=== PATIENT | female | born 1955 | race Asian ===

== ENCOUNTER 2020-05-05 11:17 | Outpatient (REF) | payer MEDICARE, SELFPAY ==
--- NOTE | 2020-05-05 11:23 | MM_ITS ---
EXAMINATION: MM SCREENING DIGITAL BREAST TOMOSYNTHESIS, BILATERAL CLINICAL INFORMATION: Screening. Asymptomatic. The lifetime risk of breast cancer based on the Tyrer-Cuzick Model is 6%. COMPARISON: Mammography: 09/16/2017, 08/03/2016 TECHNIQUE: Digital breast tomosynthesis is performed in both the craniocaudal and mediolateral oblique views along with computer-aided detection (CAD). Synthesized 2D images are generated from the tomosynthesis. FINDINGS: The breasts are heterogeneously dense, which may obscure small masses (ACR BI-RADS breast composition Category c). There are no significant masses, abnormal calcifications, or other abnormalities. Parenchymal pattern is similar to prior studies. Again, there are scattered coarse and punctate calcifications. No significant changes. MM/MM tomosynthesis screening BI IMPRESSION: No mammographic evidence of malignancy. ASSESSMENT: BI-RADS 2: Benign RECOMMENDATION: Routine annual mammography screening. This patient's information was entered into a reminder system with a target due date for their next mammogram.
== END 2020-05-05 11:18 | disposition home or self-care (01) ==
LOC: HO.MAMMO 11:17
PROVIDERS: PCP Internal Medicine; Visit Provider Internal Medicine
DX: Z12.31 Encounter for screening mammogram for malignant neoplasm of breast (principal)
CPT/HCPCS: 77063; 77067

== ENCOUNTER 2021-02-12 10:26 | Outpatient (REF) | payer MEDICARE, SELFPAY ==
[2021-02-12 10:28] LABS: MANUAL DIFF FLAG NO
[2021-02-12 10:38] LABS: Basophils Absolute Auto 0.1 X10*3/uL (0.0-0.2); Basophils Percent Auto 1.5 % (0-2); Eosinophils Absolute Auto 0.6 X10*3/uL (0.0-0.4); Eosinophils Percent Auto 10.3 % (0-4); Hematocrit 39.4 % (37-47); Hemoglobin 13.1 g/dl (12.0-16.0); Imm Gran Abs Auto 0.01 X10*3/uL (0.00-0.03); Imm Gran Pct Auto 0.2 % (0.0-0.4); Lymphocytes Absolute Auto 2.3 X10*3/uL (1.2-4.9); Lymphocytes Percent Auto 42.7 % (20-40); Mean Corpuscular HGB Conc 33.2 g/dl (31.0-35.0); Mean Corpuscular Volume 90.4 fL (80-98); Mean Platelet Volume 9.8 fL (9.4-12.3); Monocytes Absolute Auto 0.4 X10*3/uL (0.1-1.2); Monocytes Percent Auto 6.8 % (2-11); Neutrophils Absolute Auto 2.1 X10*3/uL (2.0-8.3); Neutrophils Percent Auto 38.5 % (45-73); Platelet Count 256 X10*3/uL (160-400); Red Blood Count 4.36 X10*6/uL (4.20-5.50); Red Cell Distribution Width 12.8 % (11.0-16.0); White Blood Count 5.4 X10*3/uL (4.8-10.8)
[2021-02-12 10:57] LABS: Alanine Aminotransferase 26 U/L (0-31); Alkaline Phosphatase 79 U/L (39-117); Anion Gap 11 (12-20); Aspartate Amino Transferase 21 U/L (5-31); Bilirubin Total 0.8 mg/dL (0.0-1.0); Blood Urea Nitrogen 10 mg/dL (9-16); Calcium 9.2 mg/dL (8.4-10.2); Carbon Dioxide 26 mmol/L (22-29); Chloride 106 mmol/L (96-108); Cholesterol 189 mg/dL; Estimated Glomerular Filt Rate > 60; Glucose Fasting 131 mg/dL (60-99); HDL Cholesterol 45 mg/dL; LDL Cholesterol Calculated 115 mg/dl; Potassium 3.4 mmol/L (3.3-5.1); Sodium 140 mmol/L (135-145); Total Protein 6.9 g/dL (6.5-8.0); Triglycerides 148 mg/dL
[2021-02-12 11:01] LABS: Estimated Average Glucose 131 mg/dL; Hemoglobin A1c % 6.2 %
[2021-02-12 11:08] LABS: Appearance Urine HAZY; Color Urine YELLOW; Glucose Urine UA NEG (NEG); Leukocyte Esterase Urine 2+ (NEG); Nitrite Urine NEG (NEG); PH 7.5 (5.0-8.0); Specific Gravity - Urine 1.015 (1.005-1.025); Urine Blood NEG (NEG); Urine Ketones NEG (NEG); Urine Protein NEG (NEG-TRACE)
[2021-02-12 11:32] LABS: Creatinine Urine 123.76 mg/dL; Microalbum/Creatinine Ratio Ur 12.1 ug/mg cr
[2021-02-12 11:35] LABS: Bacteria Urine 3+ /LPF; RBC Urine 0 /HPF (0); Squamous Epithelial Cell Urine 1+ /LPF
== END 2021-02-12 10:27 | disposition home or self-care (01) ==
LOC: HO.LNP 10:26
PROVIDERS: Visit Provider Internal Medicine
DX: E11.9 Type 2 diabetes mellitus without complications (principal); M81.0 Age-related osteoporosis without current pathological fracture; E55.9 Vitamin D deficiency, unspecified
CPT/HCPCS: 80053; 80061; 81001; 81003; 82043; 82306; 83036; 85025

== ENCOUNTER 2021-04-20 10:22 | Outpatient (REF) | payer MEDICARE, SELFPAY ==
[2021-04-20 10:25] LABS: MANUAL DIFF FLAG NO
[2021-04-20 11:15] LABS: Basophils Absolute Auto 0.1 X10*3/uL (0.0-0.2); Basophils Percent Auto 1.2 % (0-2); Eosinophils Absolute Auto 0.6 X10*3/uL (0.0-0.4); Eosinophils Percent Auto 10.5 % (0-4); Hematocrit 41.4 % (37.0-47.0); Hemoglobin 13.6 g/dl (12.0-16.0); Imm Gran Abs Auto 0.01 X10*3/uL (0.00-0.03); Imm Gran Pct Auto 0.2 % (0.0-0.4); Lymphocytes Percent Auto 34.1 % (20-40); Mean Corpuscular HGB Conc 32.9 g/dl (31.0-35.0); Mean Corpuscular Hemoglobin 30.2 pg (27.0-33.0); Mean Platelet Volume 10.3 fL (9.4-12.3); Monocytes Absolute Auto 0.5 X10*3/uL (0.1-1.2); Neutrophils Absolute Auto 2.8 x10*3/uL (2.0-8.3); Platelet Count 259 X10*3/uL (160-400); Red Cell Distribution Width 12.6 % (11.0-16.0)
== END 2021-04-20 10:23 | disposition home or self-care (01) ==
LOC: HO.LNP 10:22
PROVIDERS: Visit Provider Internal Medicine
DX: D72.820 Lymphocytosis (symptomatic) (principal)
CPT/HCPCS: 85025

== ENCOUNTER 2021-05-12 09:48 | Outpatient (REF) | payer MEDICARE, SELFPAY ==
--- NOTE | ~2021-05-12 | MM_ITS ---
EXAMINATION: MM SCREENING DIGITAL BREAST TOMOSYNTHESIS, BILATERAL CLINICAL INFORMATION: Screening. Asymptomatic. The lifetime risk of breast cancer based on the Tyrer-Cuzick Model is 5%. COMPARISON: Mammography: 05/05/2020, 09/16/2017, 08/03/2016 TECHNIQUE: Digital breast tomosynthesis is performed in both the craniocaudal and mediolateral oblique views along with computer-aided detection (CAD). Synthesized 2D images are generated from the tomosynthesis. Additional exaggerated right CC view is provided. FINDINGS: The breasts are heterogeneously dense, which may obscure small masses (ACR BI-RADS breast composition Category c). There are no significant masses, abnormal calcifications, or other abnormalities. No developing density or architectural abnormality. The axilla are unremarkable. No significant changes. MM/MM tomosynthesis screening BI IMPRESSION: No mammographic evidence of malignancy. ASSESSMENT: BI-RADS 1: Negative RECOMMENDATION: Routine annual mammography screening. This patient's information was entered into a reminder system with a target due date for their next mammogram.
== END 2021-05-12 09:49 | disposition home or self-care (01) ==
LOC: HO.MAMMO 09:48
PROVIDERS: Visit Provider Internal Medicine
DX: Z12.31 Encounter for screening mammogram for malignant neoplasm of breast (principal)
CPT/HCPCS: 77063; 77067

== ENCOUNTER 2021-08-18 15:36 | Outpatient (REF) | payer MEDICARE, SELFPAY ==
[2021-08-18 15:40] LABS: MANUAL DIFF FLAG NO
[2021-08-18 15:48] LABS: Basophils Absolute Auto 0.1 X10*3/uL (0.0-0.2); Basophils Percent Auto 1.4 % (0-2); Eosinophils Absolute Auto 0.1 X10*3/uL (0.0-0.4); Eosinophils Percent Auto 1.6 % (0-4); Hematocrit 41.4 % (37.0-47.0); Hemoglobin 13.4 g/dl (12.0-16.0); Imm Gran Abs Auto 0.01 X10*3/uL (0.00-0.03); Imm Gran Pct Auto 0.2 % (0.0-0.4); Lymphocytes Absolute Auto 1.7 X10*3/uL (1.2-4.9); Lymphocytes Percent Auto 35.3 % (20-40); Mean Corpuscular HGB Conc 32.4 g/dl (31.0-35.0); Mean Corpuscular Hemoglobin 29.6 pg (27.0-33.0); Mean Corpuscular Volume 91.6 fL (80.0-98.0); Mean Platelet Volume 10.2 fL (9.4-12.3); Monocytes Absolute Auto 0.4 X10*3/uL (0.1-1.2); Monocytes Percent Auto 7.2 % (2-11); Neutrophils Absolute Auto 2.6 x10*3/uL (2.0-8.3); Neutrophils Percent Auto 54.3 % (45-73); Platelet Count 253 X10*3/uL (160-400); Red Blood Count 4.52 X10*6/uL (4.20-5.50); Red Cell Distribution Width 12.6 % (11.0-16.0); White Blood Count 4.9 X10*3/uL (4.8-10.8)
== END 2021-08-18 15:37 | disposition home or self-care (01) ==
LOC: HO.LNP 15:36
PROVIDERS: Visit Provider Internal Medicine
DX: D72.820 Lymphocytosis (symptomatic) (principal)
CPT/HCPCS: 85025

== ENCOUNTER 2022-01-08 10:14 | Outpatient (REF) | payer MEDICARE, SELFPAY ==
--- NOTE | ~2022-01-08 | MM_ITS ---
EXAMINATION: BONE DENSITOMETRY CLINICAL INDICATION: Osteoporosis. COMPARISON: Previous BD dated 01/03/2020 and baseline BD dated 09/03/2015. TECHNIQUE: Using a [employer] DXA System (software version: 13.1) manufactured by [employer], dual-energy x-ray absorptiometry was performed of the lumbar spine and left hip. The images are of good technical quality. Summary results are attached. FINDINGS: AP SPINE L1-L4: Current: BMD 0.956 g/cm2, Z-score -0.2, T-score -1.9, osteopenia, 6.2% decrease from previous, 1.1% decrease from baseline (<5% change is not significant). Prior: BMD 1.019 g/cm2. Baseline: BMD 0.967 g/cm2. LEFT FEMUR, NECK: Current: BMD 0.697 g/cm2, Z-score -0.9, T-score -2.5, osteoporosis. Prior: BMD 0.698 g/cm2. Baseline: BMD 0.734 g/cm2. LEFT FEMUR, TOTAL: Current: BMD 0.770 g/cm2, Z-score -0.5, T-score -1.9, osteopenia, 0.6% decrease from previous, 4.6% decrease from baseline (<5% change is not significant). Prior: BMD 0.775 g/cm2. Baseline: BMD 0.807 g/cm2. IDENTIFIED RISK FACTORS: Menopause, family history (parental hip fracture), height loss. HISTORY OF FRACTURE: None listed. MEDICATIONS: Calcium supplements or multivitamin, vitamin D. MM/XR DEXA axial skeleton IMPRESSION: 1. DIAGNOSIS: Osteoporosis based on the lowest T-score value of -2.5 in the femoral neck applying World Health Organization criteria. 2. 10-YEAR FRACTURE RISK PREDICTION, FRAX: Major osteoporotic fracture (clinical spine, forearm, hip or shoulder) 13.3%. Hip fracture 2.7%. 3. Treatment Recommendations: NOF guidelines recommend consideration for treatment in postmenopausal women and men age 50 and older presenting with the following: -A hip or vertebral (clinical or morphometric) fracture. -T-score less than or equal to -2.5 at the femoral neck or spine after appropriate evaluation to exclude secondary causes. -Low bone mass at the hip or spine and a 10-year fracture probability by FRAX of greater than or equal to 3% for hip fracture or greater than or equal to 20% for major osteoporotic fracture based on the [place] adapted WHO algorithm. 4. Other Recommendations: All treatment decisions require clinical judgment and consideration of individual patient factors, including patient preferences, comorbidities, previous drug use, risk factors not captured in the FRAX model (e.g. frailty, falls, vitamin D deficiency, increased bone turnover, interval significant decline in bone density) and possible under or overestimation of fracture risk by FRAX. Additional medical evaluation for secondary cause of low bone mineral density may be appropriate. FUTURE SCAN RECOMMENDATION: People with diagnosed cases of osteoporosis or at high risk for fracture should have regular bone mineral density tests. For patients eligible for Medicare, routine testing is allowed once every 2 years. The testing frequency can be increased to one year for patients who have rapidly progressing disease, those who are receiving or discontinuing medical therapy to restore bone mass, or have additional risk factors.
== END 2022-01-08 10:15 | disposition home or self-care (01) ==
LOC: HO.MAMMO 10:14
PROVIDERS: PCP Internal Medicine; Visit Provider Internal Medicine
DX: Z13.820 Encounter for screening for osteoporosis (principal); Z78.0 Asymptomatic menopausal state; M81.0 Age-related osteoporosis without current pathological fracture
CPT/HCPCS: 77080

== ENCOUNTER → 2022-07-21 09:21 | Outpatient (BNVA) | payer MEDICARE, SELFPAY | PROVIDERS: PCP Internal Medicine; Visit Provider Internal Medicine Endocrinology, Diabetes & Metabolism | DX: M81.0 Age-related osteoporosis without current pathological fracture (principal) | CPT/HCPCS: 99202 ==

== ENCOUNTER 2022-07-22 12:27 | Outpatient (REF) | payer MEDICARE, SELFPAY ==
[2022-07-22 12:31] LABS: MANUAL DIFF FLAG NO
[2022-07-22 13:07] LABS: Basophils Absolute Auto 0.1 X10*3/uL (0.0-0.2); Eosinophils Absolute Auto 0.2 X10*3/uL (0.0-0.4); Hematocrit 40.9 % (37.0-47.0); Hemoglobin 13.5 g/dl (12.0-16.0); Imm Gran Abs Auto 0.01 X10*3/uL (0.00-0.03); Imm Gran Pct Auto 0.2 % (0.0-0.4); Lymphocytes Absolute Auto 1.8 X10*3/uL (1.2-4.9); Lymphocytes Percent Auto 33.6 % (20-40); Mean Corpuscular Hemoglobin 29.3 pg (27.0-33.0); Mean Corpuscular Volume 88.9 fL (80.0-98.0); Mean Platelet Volume 9.5 fL (9.4-12.3); Monocytes Absolute Auto 0.4 X10*3/uL (0.1-1.2); Monocytes Percent Auto 7.5 % (2-11); Neutrophils Absolute Auto 2.8 x10*3/uL (2.0-8.3); Neutrophils Percent Auto 53.7 % (45-73); Platelet Count 286 X10*3/uL (160-400); Red Cell Distribution Width 12.5 % (11.0-16.0); White Blood Count 5.2 X10*3/uL (4.8-10.8)
[2022-07-22 13:17] LABS: Appearance Urine Turbid; Color Urine Yellow; Glucose Urine UA Negative (Negative); Leukocyte Esterase Urine Moderate (2+) (Negative); Nitrite Urine Positive (Negative); PH 8.5 (5.0-9.0); Specific Gravity - Urine 1.015 (1.005-1.025); UMIC TRIGGER UACC YES; Urine Blood Negative (Negative); Urine Ketones Negative (Negative); Urine Protein Negative (Neg-Trace)
[2022-07-22 13:21] LABS: Bacteria Urine 4+ (None Seen); Hyaline Casts Urine 0-2 /LPF (0-2); RBC Urine 0-2 /HPF (0-2); Squamous Epithelial Cell Urine 0-2 /HPF (0-2); UACC Culture Trigger YES; WBC Urine 21-50 /HPF (0-5)
[2022-07-22 15:07] LABS: Creatinine Urine 65.04 mg/dL; Microalbum/Creatinine Ratio Ur 13.8 ug/mg cr
[2022-07-22 15:34] LABS: Estimated Average Glucose 137 mg/dL; Hemoglobin A1c % 6.4 %
[2022-07-22 16:46] LABS: Alanine Aminotransferase 26 U/L (0-31); Albumin Level 3.9 g/dL (3.5-5.0); Alkaline Phosphatase 82 U/L (39-117); Anion Gap 14 (12-20); Aspartate Amino Transferase 22 U/L (5-31); Bilirubin Total 0.6 mg/dL (0.0-1.0); Blood Urea Nitrogen 11 mg/dL (9-16); Calcium 9.2 mg/dL (8.4-10.2); Carbon Dioxide 26 mmol/L (22-29); Chloride 107 mmol/L (96-108); Cholesterol 224 mg/dL; Estimated Glomerular Filt Rate > 60; Glucose Fasting 119 mg/dL (60-99); HDL Cholesterol 47 mg/dL; LDL Cholesterol Calculated 154 mg/dl; Sodium 143 mmol/L (135-145); Total Protein 6.7 g/dL (6.5-8.0); Triglycerides 118 mg/dL
== END 2022-07-22 12:28 | disposition home or self-care (01) ==
LOC: HO.LNP 12:27
PROVIDERS: Visit Provider Internal Medicine
DX: E11.9 Type 2 diabetes mellitus without complications (principal); E55.9 Vitamin D deficiency, unspecified; D72.820 Lymphocytosis (symptomatic); R82.90 Unspecified abnormal findings in urine
CPT/HCPCS: 80053; 80061; 81001; 81003; 82043; 82306; 83036; 85025; 87086; 87088; 87186

== ENCOUNTER 2022-07-26 11:01 | Outpatient (REF) | payer MEDICARE, SELFPAY ==
--- NOTE | ~2022-07-26 | MM_ITS ---
EXAMINATION: MM SCREENING DIGITAL BREAST TOMOSYNTHESIS, BILATERAL CLINICAL INFORMATION: Screening. Asymptomatic. The lifetime risk of breast cancer based on the Tyrer-Cuzick Model is 4.3%. COMPARISON: Mammography: May 04, 2021 and studies dating back to July 09, 2015 TECHNIQUE: Digital breast tomosynthesis is performed in both the craniocaudal and mediolateral oblique views along with computer-aided detection (CAD). Synthesized 2D images are generated from the tomosynthesis. FINDINGS: The breasts are heterogeneously dense, which may obscure small masses (ACR BI-RADS breast composition Category c). There are no significant masses, abnormal calcifications, or other abnormalities. MM/MM tomosynthesis screening BI IMPRESSION: No significant changes from prior exam. ASSESSMENT: BI-RADS 1: Negative RECOMMENDATION: Routine annual mammography screening. This patient's information was entered into a reminder system with a target due date for their next mammogram.
== END 2022-07-26 11:02 | disposition home or self-care (01) ==
LOC: HO.MAMMO 11:01
PROVIDERS: PCP Internal Medicine; Visit Provider Internal Medicine
DX: Z12.31 Encounter for screening mammogram for malignant neoplasm of breast (principal)
CPT/HCPCS: 77063; 77067

== ENCOUNTER 2022-08-09 07:34 | Outpatient (REF) | payer MEDICARE, SELFPAY ==
[2022-08-09 14:47] LABS: Creatinine, 24Hr Urine 0.9 G/Day (1.0-2.0); Total Volume 24 Hour Urine 1325 mL
[2022-08-10 19:39] LABS: Calcium, 24 Hr Urine 387 mg/24 h; Calcium/Creatinine Ratio 442 mg/g creat (30-275); Creatinine 24Hr Urine 0.87 g/24 h (0.50-2.15)
== END 2022-08-09 07:35 | disposition home or self-care (01) ==
LOC: HO.10HDLNP 07:34
PROVIDERS: Visit Provider Internal Medicine Endocrinology, Diabetes & Metabolism
DX: M81.0 Age-related osteoporosis without current pathological fracture (principal); R82.90 Unspecified abnormal findings in urine
CPT/HCPCS: 81001; 82340; 82570; 86335; 87086

== ENCOUNTER 2022-08-09 10:49 | Outpatient (REF) | payer MEDICARE, SELFPAY ==
[2022-08-09 11:00] LABS: Appearance Urine Clear; Color Urine Yellow; Glucose Urine UA Negative (Negative); Leukocyte Esterase Urine Moderate (2+) (Negative); Nitrite Urine Negative (Negative); PH 7.5 (5.0-9.0); UMIC TRIGGER UACC YES; Urine Blood Negative (Negative); Urine Ketones Negative (Negative); Urine Protein Negative (Neg-Trace)
[2022-08-09 11:05] LABS: Bacteria Urine None Seen (None Seen); Hyaline Casts Urine 0-2 /LPF (0-2); RBC Urine 0-2 /HPF (0-2); Squamous Epithelial Cell Urine 0-2 /HPF (0-2); UACC Culture Trigger YES; WBC Urine 21-50 /HPF (0-5)
== END 2022-08-09 10:50 | disposition home or self-care (01) ==
LOC: HO.LNP 10:49
PROVIDERS: Visit Provider Internal Medicine
DX: Z13.89 Encounter for screening for other disorder (principal)
CPT/HCPCS: 81001; 87086

== ENCOUNTER 2022-09-15 10:26 | Outpatient (REF) | payer MEDICARE, SELFPAY ==
[2022-09-15 14:08] LABS: Phosphorus 3.7 mg/dL (2.7-4.5)
[2022-09-17 12:38] LABS: Prot Elec - Albumin 4.1 g/dL (3.8-4.8); Prot Elec - Alpha1 0.3 g/dL (0.2-0.3); Prot Elec - Alpha2 0.6 g/dL (0.5-0.9); Prot Elec - Beta 1 0.4 g/dL (0.4-0.6); Prot Elec - Beta 2 0.3 g/dL (0.2-0.5); Prot Elec - Gamma 1.4 g/dL (0.8-1.7)
== END 2022-09-15 10:27 | disposition home or self-care (01) ==
LOC: HO.10HDL 10:26
PROVIDERS: Visit Provider Internal Medicine Endocrinology, Diabetes & Metabolism
DX: M81.0 Age-related osteoporosis without current pathological fracture (principal)
CPT/HCPCS: 36415; 84100; 84165

== ENCOUNTER 2022-09-20 09:18 | Outpatient (REF) | payer MEDICARE, SELFPAY ==
[2022-09-20 11:43] LABS: Creatinine, mg/dL 37.51; Creatinine, mg/dL 37.84
[2022-09-20 14:25] LABS: Creatinine, 24Hr Urine 0.6 G/Day (1.0-2.0); Creatinine, 24Hr Urine 0.7 G/Day (1.0-2.0); Sodium 24 Hr Urine 79.4 mmol/Day (40-220); Total Volume 24 Hour Urine 1725 mL
[2022-09-22 17:48] LABS: Calcium, 24 Hr Urine 195 mg/24 h; Calcium/Creatinine Ratio 290 mg/g creat (30-275); Creatinine 24Hr Urine 0.67 g/24 h (0.50-2.15)
== END 2022-09-20 09:19 | disposition home or self-care (01) ==
LOC: HO.10HDLNP 09:18
PROVIDERS: Visit Provider Internal Medicine Endocrinology, Diabetes & Metabolism
DX: R82.994 Hypercalciuria (principal)
CPT/HCPCS: 82340; 82570; 84300

== ENCOUNTER 2023-07-26 11:13 | Outpatient (REF) | payer MEDICARE, SELFPAY ==
[2023-07-26 11:18] LABS: MANUAL DIFF FLAG NO
[2023-07-26 11:34] LABS: Appearance Urine Clear; Color Urine Yellow; Glucose Urine UA Negative (Negative); Leukocyte Esterase Urine Small (1+) (Negative); Nitrite Urine Positive (Negative); Specific Gravity - Urine 1.015 (1.005-1.025); UMIC TRIGGER UACC YES; Urine Blood Negative (Negative); Urine Ketones Negative (Negative); Urine Protein Negative (Neg-Trace)
[2023-07-26 11:37] LABS: Bacteria Urine 4+ (None Seen); Hyaline Casts Urine 0-2 /LPF (0-2); RBC Urine 0-2 /HPF (0-2); Squamous Epithelial Cell Urine 0-2 /HPF (0-2); UACC Culture Trigger YES
[2023-07-26 11:38] LABS: Basophils Absolute Auto 0.1 X10*3/uL (0.0-0.2); Basophils Percent Auto 1.3 % (0-2); Eosinophils Absolute Auto 0.1 X10*3/uL (0.0-0.4); Eosinophils Percent Auto 1.9 % (0-4); Hematocrit 39.7 % (37.0-47.0); Hemoglobin 13.2 g/dl (12.0-16.0); Imm Gran Abs Auto 0.01 X10*3/uL (0.00-0.03); Imm Gran Pct Auto 0.2 % (0.0-0.4); Lymphocytes Absolute Auto 2.1 X10*3/uL (1.2-4.9); Lymphocytes Percent Auto 44.4 % (20-40); Mean Corpuscular HGB Conc 33.2 g/dl (31.0-35.0); Mean Corpuscular Hemoglobin 29.6 pg (27.0-33.0); Mean Platelet Volume 10.2 fL (9.4-12.3); Monocytes Absolute Auto 0.3 X10*3/uL (0.1-1.2); Monocytes Percent Auto 6.2 % (2-11); Neutrophils Absolute Auto 2.2 x10*3/uL (2.0-8.3); Platelet Count 244 X10*3/uL (160-400); Red Blood Count 4.46 X10*6/uL (4.20-5.50); Red Cell Distribution Width 13.3 % (11.0-16.0); White Blood Count 4.7 X10*3/uL (4.8-10.8)
[2023-07-26 11:52] LABS: Estimated Average Glucose 131 mg/dL; Hemoglobin A1c % 6.2 % (<6.0)
[2023-07-26 12:16] LABS: Alanine Aminotransferase 20 U/L (0-31); Alkaline Phosphatase 80 U/L (39-117); Anion Gap 8 (12-20); Aspartate Amino Transferase 22 U/L (5-31); Bilirubin Total 0.5 mg/dL (0.0-1.0); Blood Urea Nitrogen 9 mg/dL (9-16); Calcium 9.4 mg/dL (8.4-10.2); Carbon Dioxide 28 mmol/L (22-29); Chloride 110 mmol/L (96-108); Cholesterol 200 mg/dL (<200); Estimated Glomerular Filt Rate > 60; Glucose Fasting 134 mg/dL (60-99); HDL Cholesterol 51 mg/dL (>40); LDL Cholesterol Calculated 123 mg/dL (<100); Potassium 4.3 mmol/L (3.3-5.1); Sodium 142 mmol/L (135-145); Total Protein 7.3 g/dL (6.5-8.0); Triglycerides 134 mg/dL (<150)
[2023-07-26 12:19] LABS: Vitamin D 25-OH Total 60.3 ng/mL (>30)
[2023-07-26 12:20] LABS: Creatinine Urine 63.43 mg/dL; Microalbum/Creatinine Ratio Ur 14.1 ug/mg cr (<30)
== END 2023-07-26 11:14 | disposition home or self-care (01) ==
LOC: HO.LNP 11:13
PROVIDERS: Visit Provider Internal Medicine
DX: E11.9 Type 2 diabetes mellitus without complications (principal); D72.820 Lymphocytosis (symptomatic); E55.9 Vitamin D deficiency, unspecified; R82.90 Unspecified abnormal findings in urine
CPT/HCPCS: 80053; 80061; 81001; 82043; 82306; 82570; 83036; 85025; 87086; 87088; 87186

== ENCOUNTER 2023-08-02 07:19 | Outpatient (REF) | payer MEDICARE, SELFPAY ==
--- NOTE | ~2023-08-02 | MM_ITS ---
EXAMINATION: MM SCREENING DIGITAL BREAST TOMOSYNTHESIS, BILATERAL CLINICAL INFORMATION: Screening. Asymptomatic. The patient is status post benign right excisional biopsy in the remote past. COMPARISON: Mammography: This study is compared with prior exams dating back to TECHNIQUE: Digital breast tomosynthesis is performed in both the craniocaudal and mediolateral oblique views along with computer-aided detection (CAD). Synthesized 2D images are generated from the tomosynthesis. FINDINGS: The breasts are heterogeneously dense, which may obscure small masses (ACR BI-RADS breast composition Category c). There are no significant masses, abnormal calcifications, or other abnormalities. MM/MM tomosynthesis screening BI IMPRESSION: No mammographic evidence of malignancy. ASSESSMENT: BI-RADS BI-RADS 1 - Negative RECOMMENDATION: Routine annual mammography screening. 1 year F/U This examination should not preclude the clinical evaluation of a suspicious palpable abnormality. This patient's information was entered into a reminder system with a target due date for their next mammogram.
== END 2023-08-02 07:20 | disposition home or self-care (01) ==
LOC: HO.MAMMO 07:19
PROVIDERS: PCP Internal Medicine; Visit Provider Internal Medicine
DX: Z12.31 Encounter for screening mammogram for malignant neoplasm of breast (principal)
CPT/HCPCS: 77063; 77067

== ENCOUNTER → 2023-08-02 07:45 | Outpatient (BNV) | payer MEDICARE, SELFPAY | PROVIDERS: PCP Internal Medicine; Visit Provider Radiology Diagnostic Radiology | DX: Z12.31 Encounter for screening mammogram for malignant neoplasm of breast (principal) | CPT/HCPCS: 77063; 77067 ==

== ENCOUNTER 2023-08-09 11:13 | Outpatient (REF) | payer MEDICARE, SELFPAY ==
[2023-08-09 11:39] LABS: Appearance Urine Clear; Color Urine Dark Yellow; Glucose Urine UA Negative (Negative); Leukocyte Esterase Urine Small (1+) (Negative); Nitrite Urine Negative (Negative); Specific Gravity - Urine 1.015 (1.005-1.025); UMIC TRIGGER UA YES; Urine Blood Negative (Negative); Urine Ketones Negative (Negative); Urine Protein Negative (Neg-Trace)
[2023-08-09 11:42] LABS: Bacteria Urine None Seen (None Seen); Hyaline Casts Urine 0-2 /LPF (0-2); RBC Urine 0-2 /HPF (0-2); Squamous Epithelial Cell Urine 0-2 /HPF (0-2)
== END 2023-08-09 11:14 | disposition home or self-care (01) ==
LOC: HO.LNP 11:13
PROVIDERS: Visit Provider Internal Medicine
DX: N39.0 Urinary tract infection, site not specified (principal)
CPT/HCPCS: 81001; 87086

== ENCOUNTER 2024-03-09 10:39 | Outpatient (REF) | payer MEDICARE, SELFPAY ==
--- NOTE | ~2024-03-09 | MM_ITS ---
EXAMINATION: BONE DENSITOMETRY CLINICAL INDICATION: Age-related osteoporosis without current pathological fracture. COMPARISON: Previous BD dated 01/08/2022 and baseline BD dated 09/03/2015. TECHNIQUE: Using a [employer] DXA System (software version: 13.1) manufactured by [employer], dual-energy x-ray absorptiometry was performed of the lumbar spine and left hip. The images are of good technical quality. Summary results are attached. FINDINGS: AP SPINE L1-L4: Current: BMD 0.969 g/cm2, Z-score -0.1, T-score -1.8, osteopenia, 1.4% increase from previous, 0.2% increase from baseline (<5% change is not significant). Prior: BMD 0.956 g/cm2. Baseline: BMD 0.967 g/cm2. LEFT FEMUR, NECK: Current: BMD 0.722 g/cm2, Z-score -0.6, T-score -2.3, osteopenia. Prior: BMD 0.697 g/cm2. Baseline: BMD 0.734 g/cm2. LEFT FEMUR, TOTAL: Current: BMD 0.739 g/cm2, Z-score -0.7, T-score -2.1, osteopenia, 4.0% decrease from previous, 8.4% decrease from baseline (<5% change is not significant). Prior: BMD 0.770 g/cm2. Baseline: BMD 0.807 g/cm2. IDENTIFIED RISK FACTORS: Parental hip fracture. Menopause. HISTORY OF FRACTURE: None listed. MEDICATIONS: Calcium supplement and/or multivitamin. Vitamin D. MM/XR DEXA axial skeleton IMPRESSION: 1. DIAGNOSIS: Osteopenia based on the lowest T-score value of -2.3 in the femoral neck applying World Health Organization criteria. 2. 10-YEAR FRACTURE RISK PREDICTION, FRAX: Major osteoporotic fracture (clinical spine, forearm, hip or shoulder) 12.4%. Hip fracture 3.5%. 3. Treatment Recommendations: NOF guidelines recommend consideration for treatment in postmenopausal women and men age 50 and older presenting with the following: -A hip or vertebral (clinical or morphometric) fracture. -T-score less than or equal to -2.5 at the femoral neck or spine after appropriate evaluation to exclude secondary causes. -Low bone mass at the hip or spine and a 10-year fracture probability by FRAX of greater than or equal to 3% for hip fracture or greater than or equal to 20% for major osteoporotic fracture based on the [place] adapted WHO algorithm. 4. Other Recommendations: All treatment decisions require clinical judgment and consideration of individual patient factors, including patient preferences, comorbidities, previous drug use, risk factors not captured in the FRAX model (e.g. frailty, falls, vitamin D deficiency, increased bone turnover, interval significant decline in bone density) and possible under or overestimation of fracture risk by FRAX. Additional medical evaluation for secondary cause of low bone mineral density may be appropriate. FUTURE SCAN RECOMMENDATION: People with diagnosed cases of osteoporosis or at high risk for fracture should have regular bone mineral density tests. For patients eligible for Medicare, routine testing is allowed once every 2 years. The testing frequency can be increased to one year for patients who have rapidly progressing disease, those who are receiving or discontinuing medical therapy to restore bone mass, or have additional risk factors. Electronically signed by: Eros Rizvi MD 03/12/2024 02:40 PM EDT
== END 2024-03-09 10:40 | disposition home or self-care (01) ==
LOC: HO.MAMMO 10:39
PROVIDERS: PCP Internal Medicine; Visit Provider Internal Medicine
DX: M81.0 Age-related osteoporosis without current pathological fracture (principal)
CPT/HCPCS: 77080

== ENCOUNTER 2024-08-06 10:34 | Outpatient (REF) | payer MEDICARE, SELFPAY ==
[2024-08-06 10:40] LABS: MANUAL DIFF FLAG NO
[2024-08-06 11:19] LABS: Appearance Urine Clear; Color Urine Yellow; Glucose Urine UA Negative (Negative); Leukocyte Esterase Urine Small (1+) (Negative); Nitrite Urine Negative (Negative); PH 6.5 (5.0-9.0); UMIC TRIGGER UACC YES; Urine Blood Negative (Negative); Urine Ketones Negative (Negative); Urine Protein Negative (Neg-Trace)
[2024-08-06 11:24] LABS: Basophils Absolute Auto 0.1 X10*3/uL (0.0-0.2); Basophils Percent Auto 1.4 % (0-2); Eosinophils Absolute Auto 0.2 X10*3/uL (0.0-0.4); Eosinophils Percent Auto 4.6 % (0-4); Hematocrit 39.5 % (37.0-47.0); Imm Gran Abs Auto 0.01 X10*3/uL (0.00-0.03); Imm Gran Pct Auto 0.2 % (0.0-0.4); Lymphocytes Absolute Auto 1.6 X10*3/uL (1.2-4.9); Lymphocytes Percent Auto 36.3 % (20-40); Mean Corpuscular HGB Conc 32.9 g/dl (31.0-35.0); Mean Corpuscular Hemoglobin 29.7 pg (27.0-33.0); Mean Corpuscular Volume 90.4 fL (80.0-98.0); Mean Platelet Volume 9.8 fL (9.4-12.3); Monocytes Absolute Auto 0.4 X10*3/uL (0.1-1.2); Monocytes Percent Auto 8.7 % (2-11); Neutrophils Absolute Auto 2.1 x10*3/uL (2.0-8.3); Neutrophils Percent Auto 48.8 % (45-73); Platelet Count 255 X10*3/uL (160-400); Red Blood Count 4.37 X10*6/uL (4.20-5.50); Red Cell Distribution Width 12.8 % (11.0-16.0); White Blood Count 4.4 X10*3/uL (4.8-10.8)
[2024-08-06 11:32] LABS: Bacteria Urine None Seen (None Seen); Hyaline Casts Urine 0-2 /LPF (0-2); RBC Urine 0-2 /HPF (0-2); Squamous Epithelial Cell Urine 0-2 /HPF (0-2); UACC Culture Trigger YES
[2024-08-06 11:34] LABS: Estimated Average Glucose 140 mg/dL; Hemoglobin A1c % 6.5 % (<6.0); Total Hemoglobin (HGBA1C) 3450.4588 umol/L
[2024-08-06 11:44] LABS: Alanine Aminotransferase 20 U/L (0-31); Albumin Level 3.8 g/dL (3.5-5.0); Alkaline Phosphatase 77 U/L (39-117); Anion Gap 9 (12-20); Aspartate Amino Transferase 23 U/L (5-31); Bilirubin Total 0.4 mg/dL (0.0-1.0); Blood Urea Nitrogen 9 mg/dL (9-16); Carbon Dioxide 27 mmol/L (22-29); Chloride 111 mmol/L (96-108); Cholesterol 179 mg/dL (<200); Estimated Glomerular Filt Rate > 60; Glucose Fasting 135 mg/dL (60-99); HDL Cholesterol 47 mg/dL (>40); LDL Cholesterol Calculated 110 mg/dL (<100); Potassium 3.9 mmol/L (3.3-5.1); Sodium 143 mmol/L (135-145); Total Protein 6.8 g/dL (6.5-8.0); Triglycerides 110 mg/dL (<150)
[2024-08-06 12:01] LABS: Vitamin D 25-OH Total 62.6 ng/mL (>30)
[2024-08-06 12:29] LABS: Creatinine Urine 106.39 mg/dL
== END 2024-08-06 10:35 | disposition home or self-care (01) ==
LOC: HO.LNP 10:34
PROVIDERS: Visit Provider Internal Medicine
DX: Z00.00 Encounter for general adult medical examination without abnormal findings (principal); E11.9 Type 2 diabetes mellitus without complications; E55.9 Vitamin D deficiency, unspecified; D72.820 Lymphocytosis (symptomatic)
CPT/HCPCS: 80053; 80061; 81001; 82043; 82306; 82570; 83036; 85025; 87086

== ENCOUNTER 2024-08-08 08:18 | Outpatient (REF) | payer MEDICARE, SELFPAY ==
--- OUTSIDE RECORDS SUMMARY | 2024-08-08 08:38 | XMS_ITS ---
Author Organization Yamil Singh MD Address [address] [place], [place] [id number] Care Team Providers Care Brazing Machine Operator Name Role Phone Yamil Singh Primary Care Provider Allergies No Known Allergies REASON FOR VISIT cold congested testing her self for covid Medications Medication SIG (Take, Route, Frequency, Duration) Notes Start Date End Date Status Omeprazole 40 MG TAKE 1 CAPSULE BY [facility] EVERY DAY for 90 Active Tacrolimus 0.1 [...] Location Date Provider Diagnosis Yamil Singh MD [address] [place] [address] [place] [phone] 05/25/2024 Yamil Singh Plan Of Treatment Next Appt Details Provider Name:Yamil Brown ier, 08/13/2024 02:30:00 PM, [address] [place] [address], [address], [place], [place], [phone], Progress Notes * Carmelo MCKEONDOB:1955 (69 yo F)Acc No.[id number]:05/25/2024 Patient:?Carmelo MCKEON Provider:?Yamil Singh MD :1955???Age:69 Y???Sex:Female D ate:05/25/2024 Address:[address] [place], [place] [phone] Subjective: * Chief Complaints: * ???1. Cold congested testing her self for covid. * HPI: ???Symptom(s):?Telehealth?Location of provider rendering services:?[address] [place] [address], [facility] [address],?Location of patient:?at address listed in demographics for today's visit,?Patient identification confirmed using:?Name, , SSN, Insurance information,?Telehealth method:?Telephone only. Patient not visible to care provider.,?Consent:?Patient verbally consented to treatment, Patient verbally consented to billing insurance company, Patient informed of any privacy concerns related to method of visit.? * Medical History:?Colonoscopy 2006 due in 10 years; colonoscopy 11/25/14 - repeat [address] [place], due 11/2019: colonoscopy 01/06/22 repeat 5-7 years, sees [facility] in [place]. * Medications:?Taking Claritin 10 MG Capsule 1 capsule Orally [...] affected area Externally Once a day * Allergies:?N.K.D.A. Objective: * Vitals:? Assessment: Plan: * Treatment: * * The named appointment provid er may or may not be the originator of this progress note, and it is not deemed complete until electronically signed by the appointment provider. Sign off status: Pending * Provider:?Yamil Singh MD Date:?0 05/25/2024 Generated for Trevor adames/Sonia/Marceloitting on:?08/08/2024 08:37 AM EDT History and Physical Notes * HPI (History of Present Illness) Category Sub-Category Detail Notes Category Not es Symptom(s) Telehealth Location of [facility] rendering services:: [address], [address] Location of patient:: at [...]
--- OUTSIDE RECORDS SUMMARY | 2024-08-08 08:38 | XMS_ITS ---
Author Organization Yamil Singh MD Address [address] [place] [phone] Care Team Providers Care Associate Creative Director Name Role Phone Yamil Singh Primary Care Provider REASON FOR VISIT updated order Encounters Encounter Location Date Provider Diagnosis Yamil Singh MD [address] [facility] [address] [place] [phone] 02/20/2024 Yamil Singh Age-related osteoporosis without current pathological fracture M81.0 Assessments Encounter Date Diagnosis (ICD Code) Assessment Notes Treatment Notes Treatment Clinical Notes Section Notes 02/20/2024 Age-related osteoporosis without current pathological fracture (ICD-10 - M81.0) Plan Of Treatment Pending Test Test Name Order Date BONE DENSITY DEXA 02/20/2024 Next Appt Details Provider Name:Yamil montgomery, 08/13/2024 02:30:00 PM, [address] [place] [address], [address], [place], [place], [phone], Progress Notes * Carmelo MCKEONDOB:1955 (68 yo F)Acc No.[id number]:02/20/2024 Patient:?Carmelo Mckeon :1955???Age:68 Y???Sex:Female Address:[address] [place] [address] Subjective: * Chief Complaints: * ???Updated order * Medical History:? * Surgical History:? * Hospitalization/Major Diagno stic Procedure:? * Medications:? Objective: Assessment: * Assessment: 1.?Age-related osteoporosis without current pathological fracture - M81.0? Plan: * Treatment: * Procedure Codes:? * true * Date:? Generated for Trevor adames/Sonia/Pattsmitting on:?08/08/2024 08:38 AM EDT
--- OUTSIDE RECORDS SUMMARY | 2024-08-08 08:38 | XMS_ITS ---
Author Organization Yamil Singh MD Address [address] [place], [place] [phone] Care Team Providers Care Water Conservation Specialist Name Role Phone Yamil Singh Primary Care Provider Results Component Value Reference Range Notes Complete Blood Count Auto Di ff Reviewed date:08/06/2024 12:43:14 PM Interpretation: Performing Lab:[facility], [address] [place] [phone] Notes/Report: White Blood Count 4.4 4.8-10.8 X10*3/uL [...] NRBC Abs Auto 0.000 0.0-0.012 X10*3/uL Comprehensive [place]. Panel Fa st Reviewed date:08/06/2024 12:37:06 PM Interpretation: Performing Lab:[facility], [address] [place] [phone] Notes/Report: Sodium 143 135-145 mmol/L Potassium 3.9 [...] Panel Reviewed date:08/06/2024 12:36:44 PM Interpretation: Performing Lab:[address] [phone] Notes/Report: Triglycerides 110 <150 mg/dL Desirable Triglyceride: [...] Total Reviewed date:08/06/2024 12:36:51 PM Interpretation: Performing Lab:[address] [phone] Notes/Report: Vitamin D 25-OH Total 62.6 >30 [...] Random Reviewed date:08/06/2024 12:36:37 PM Interpretation: Performing Lab:[address] [phone] Notes/Report: Creatinine Urine 106.39 Microalbumin Urine 16.0 Microalbum/Creatinine Ratio Ur 15.0 <30 ug/mg cr Albumin/Creatinine Ratio Reference Ranges: Normal: < 30 ug/mg creatinine Microalbuminuria: 30 - 300 ug/mg creatinine Clinical Albuminuria: > 300 ug/mg creatinine Hemoglobin A1c Reviewed date:08/06/2024 12:36:27 PM Interpretation: Performing Lab:[address] [phone] Notes/Report: Hemoglobin A1c % 6.5 <6.0 % [...] average glucose, using the formula of the J8H-Xpiazxw Average Glucose study (ADAG), Diabetes Care, Vol.31,#8, Dec. 2007 UA ClnCatch+Micro w/rflx Cul t Reviewed date:08/06/2024 05:10:42 PM Interpretation: Performing Lab:[address] [phone] Notes/Report: Urine, Clean Catch Color Urine Yellow Appearance Urine Clear PH 6.5 5.0-9.0 Glucose Urine UA Negative Negative mg/dL Urine Blood Negative Negative Specific [place] - Urine 1.020 1.005-1.025 Urine Protein Negative [...] Location Date Provider Diagnosis Yamil Singh MD [address] [place] [address] [address] [place], [place] [phone] 08/06/2024 Yamil Singh Blood tests for routine [...] Provider Name:Yamil Brown ier, 08/13/2024 02:30:00 PM, [address] [place] [address], Suite [facility], [place], [place], [phone], Progress Notes * Carmelo MCKEONDOB:1955 (69 yo F)Acc No.[id number]:08/06/2024 Progress Note Patient:?Carmelo MCKEON Provider:?Yamil Singh MD :1955???Age:69 Y???Sex:Female D ate:08/06/2024 Address:[address] [place], [place] [phone] Subjective: * Chief Complaints: * ???1. FASTING LABS. * Medical History:? Objective: * Vitals:? Assessment: * Assessment: 1.?Blood tests for routine g eneral physical examination - Z00.00 (Primary)???2.?Type 2 diabetes mellitus without complication, without long-term current use of insulin - E11.9???3.?Vitamin D deficiency - E55.9???4.?Lymphocytosis - D72.820??? Plan: * Treatment: 2.?Type 2 diabetes mellitus without complication, without long-term current use of insulin?LAB: Complete Blood Count Auto Diff (Collection Date & Time - 08/06/2024 07:45 AM) ?LAB: Comprehensive [place]. Panel Fast (Collection Date & Time - 08/06/2024 07:45 AM) ?LAB: Lipid Panel (Collection Date & Time - 08/06/2024 07:45 AM) ?LAB: Vitamin D 25-OH Total (Collection Date & Time - 08/06/2024 07:45 AM) ?LAB: Microalbumin, Random (Collection Date & Time - 08/06/2024 07:45 AM) ?LAB: Hemoglobin A1c (Collection Date & Time - 08/06/2024 07:45 AM) ?LAB: UA ClnCatch+Micro w/rflx Cult (Collection Date & Time - 08/06/2024 07:45 AM) 3.?Vitamin D deficiency?LAB: Complete Blood Count Auto Diff (Collection Date & Time - 08/06/2024 07:45 AM) ?LAB: Comprehensive [place]. Panel Fast (Collection Date & Time - 08/06/2024 07:45 AM) ?LAB: Lipid Panel (Collection Date & Time - 08/06/2024 07:45 AM) ?LAB: Vitamin D 25-OH Total (Collection Date & Time - 08/06/2024 07:45 AM) ?LAB: Microalbumin, Random (Collection Date & Time - 08/06/2024 07:45 AM) ?LAB: Hemoglobin A1c (Collection Date & Time 08/06/2024 07:45 AM) ?LAB: UA ClnCatch+Micro w/rflx Cult (Collection Date & Time - 08/06/2024 07:45 AM) 4.?Lymphocytosis?LAB: Complete Blood Count Auto Diff (Collection Date & Time - 08/06/2024 07:45 AM) ?LAB: Comprehensive [place]. Panel Fast (Collection Date & Time - 08/06/2024 07:45 AM) ?LAB: Lipid Panel (Collection Date & Time - 08/06/2024 07:45 AM) ?LAB: Vitamin D 25-OH Total (Collection Date & Time - 08/06/2024 07:45 AM) ?LAB: Microalbumin, Random (Collection Date & Time - 08/06/2024 07:45 AM) ?LAB: Hemoglobin A1c (Collection Date & Time - 08/06/2024 07:45 AM) ?LAB: UA ClnCatch+Micro w/rflx Cult (Collection Date & Time - 08/06/2024 07:45 AM) * Procedure Codes:?14802 VENIP UNCT, ROUTINE* * * The named appointment provid er may or may not be the originator of this progress note, and it is not deemed complete until electronically signed by the appointment provider. Sign off status: Pending * Provider:?Yamil Singh MD Date:?0 08/06/2024 Generated for Trevor adames/Sonia/Marceloitting on:?08/08/2024 08:38 AM EDT
--- OUTSIDE RECORDS SUMMARY | 2024-08-08 08:38 | XMS_ITS | Clinical Summary ---
Author Organization [address] [facility] Address [address] [place] [address] Care Team Providers Care Front End Web Developer Name Role Phone No, Pcp (Do Not Change Name) Primary Care Provid er Unavailable Allergies No known active allergies Medications sertraline (ZOLOFT) 25 mg tablet Take 1 tablet (25 mg total) by mouth daily. 04/06/2024 Active omeprazole (PRILOSEC) 40 mg capsule Take 1 capsule (40 mg total) by mouth daily. 04/06/2024 Active Active Problems Problem Noted Date Diagnosed Date Fever, unspecified fever cause 05/25/2024 Acute viral syndrome 05/25/2024 Encounters Date Type Department Care Team Description 05/25/2024 10:00 AM EST Office Visit [facility] [address] [place] [address] Garrett Man PA Fever, unspecified fever cause (Primary Dx); Acute viral syndrome 05/12/2024 Telephone [facility] [address] [place] [address] Eunice Urbina PA Results from Last 3 Months Social History Tobacco Use Types Packs/Day Years Used Date Smoking Tobacco: Never Smokeless Tobacco: Never Tobacco Cessation:Counseling Given: Not Answered Alcohol Use Standard Drinks/Week Comments Not Currently 0 (1 standard drink = 0.6 oz pur e alcohol) Comments Unknown Sex and Gender Information Value Date Recorded Sex Assigned at Not on file Legal Sex Female 2:08 PM EST Gender Identity Not on file Sexual Orientation Not on file Last Filed Vital Signs Vital Sign Reading Time Taken Comments Blood Pressure 122/80 05/25/2024 10:03 AM EST Pulse 88 05/25/2024 10:03 AM EST Temperature 36.9 ??C (98.4 ??F) 05/25/2024 10:[address] Respiratory Rate 18 05/25/2024 10:03 AM EST Oxygen Saturation 98% 05/25/2024 10:03 AM EST Inhaled Oxygen Concentration - - Weight 62.1 kg (137 lb) 05/25/2024 10:03 AM EST Height 160 cm (5' 3 ) 05/25/2024 10:03 AM EST Body Mass Index 24.27 05/25/2024 10:03 AM EST Plan of Treatment Health Maintenance Due Date Last Done Comments HIV screening 1967 Hepatitis C screening 1972 Breast cancer screening 1994 Lipid disorder screening 1994 Colon cancer screening, Colonoscopy 1999 Diabetes screening 1999 Shingles vaccine (Shingrix) (1 of 2 - Shingrix (RZV) 2 Dose Standard Series) 2004 Osteoporosis screening (bone density) 2019 Pneumococcal Vaccine (50+ ye ars) (1 of 1 - PCV) 2019 Influenza vaccine 12/15/2023 Covid-19 vaccine series ( - season) 2024 Tetanus adult (Td q 10,TDAP once) 10/04/2025 016 RSV Immunization (1 - 1-dose 75+ series) 2029 Cervical cancer screening Discontinued Meningococcal Vaccine Aged Out No belkis tyra eligible based on patient's age to complete this topic Procedures Procedure Name Priority Date/Time Associated Diagnosis Comments POCT SARS COV-2 (COVID-19) PCR/INFLUENZA A+B ([facility]) Routine 05/25/2024 10:29 AM EST Fever, unspecified fever cause POCT STREP A ([facility]) Routine 05/25/2024 10:27 AM EST Fever, unspecified fever cause from Last 3 Months Results * POCT SARS COV-2 (COVID-19) PCR/Influenza A+B (In-Clinic) (05/25/2024 10:29 AM EST) POC SARS-CoV-2 (COVID-19) PCR Not Detected Not Detected POC Influenza A Not Detected Not Detected POC Influenza B Not Detected Not Detected POC Kit Lot Number [id number] POC Expiration Date 08/13/2025 Nasal Swab 05/25/2024 10:2 9 AM EST us Garrett VANCE POINT OF CARE ORDERS W/FUTURE F inal Result * POCT Strep A(In-Clinic) (05/25/2024 10:27 AM EST) POC Strep A Not Detected Not Detected POC Kit Lot Number [id number] POC Expiration Date 07/13/2025 Throat 05/25/2024 10:2 7 AM EST us Garrett VANCE POINT OF CARE ORDERS W/FUTURE F inal Result from Last 3 Months Insurance MEDICARE MEDICARE MEDICARE Care Teams Front End Web Developer Relationship Specialty Start Date End Date No, Pcp (Do Not Change Name) PCP - General 05/09/24
== END 2024-08-08 08:19 | disposition home or self-care (01) ==
LOC: HO.MAMMO 08:18
PROVIDERS: PCP Internal Medicine; Visit Provider Internal Medicine
DX: Z12.31 Encounter for screening mammogram for malignant neoplasm of breast (principal)
CPT/HCPCS: 77063; 77067

== ENCOUNTER → 2024-08-08 08:30 | Outpatient (BNV) | payer MEDICARE, SELFPAY | PROVIDERS: PCP Internal Medicine; Visit Provider Internal Medicine | DX: Z12.31 Encounter for screening mammogram for malignant neoplasm of breast (principal) | CPT/HCPCS: 77063; 77067 ==

== ENCOUNTER 2025-02-08 10:37 | Outpatient (REF) | payer MEDICARE, SELFPAY ==
--- OUTSIDE RECORDS SUMMARY | 2024-02-20 10:57 | XMS_ITS ---
Author Organization Yamil Singh MD Address [address] [place] [phone] Care Team Providers Care Dietitian Teaching Name Role Phone Yamil Singh Primary Care Provider REASON FOR VISIT updated order Encounters Encounter Location Date Provider Diagnosis Yamil Singh MD [address] [facility] [address] [place] [phone] 02/20/2024 Yamil Singh Age-related osteoporosis without current pathological fracture M81.0 Assessments Encounter Date Diagnosis (ICD Code) Assessment Notes Treatment Notes Treatment Clinical Notes Section Notes 02/20/2024 Age-related osteoporosis without current pathological fracture (ICD-10 - M81.0) Plan Of Treatment Pending Test Test Name Order Date BONE DENSITY DEXA 02/20/2024 Next Appt Details Provider Name:Yamil montgomery, 02/12/2025 02:15:00 PM, [address] [place] [address], [address], [place], [place], [phone], Provider Name:Yamil Brown valentina, 09/05/2025 07:15:00 AM, [address] [place] [address], [address] [facility], [place], [place], [phone], Provider Name:Yamil Brown valentina, 09/12/2025 02:30:00 PM, [address] [place] [address], [place] [address], [place], [place], [phone], Progress Notes * Carmelo MCKEONDOB:1955 (68 yo F)Acc No.[id number]:02/20/2024 Patient: Carmelo Howell :1955 A ge:68 Y S ex:Female Address:[address] [place] [address] Subjective: * Chief Complaints: * U pdated order * Medical History: * Surgical History: * Hospitalization/Major Diagno stic Procedure: * Medications: Objective: Assessment: * Assessment: 1. A ge-related osteoporosis without current pathological fracture - M81.0 Plan: * Treatment: * Procedure Codes: * true * Date: Generated for Trevor adames/Sonia/Pattsmitting on: 0 02/08/2025 12:09 PM EDT
--- OUTSIDE RECORDS SUMMARY | 2024-05-25 12:15 | XMS_ITS ---
Author Organization Yamil Singh MD Address [address] [place], [place] [phone] Care Team Providers Care Mirror Maker Name Role Phone Yamil Singh Primary Care Provider Allergies No Known Allergies REASON FOR VISIT cold congested testing her self for covid Medications Medication SIG (Take, Route, Frequency, Duration) Notes Start Date End Date Status Omeprazole 40 MG TAKE 1 CAPSULE BY MO [facility] EVERY DAY for 90 Active Tacrolimus 0.1 % 1 application Externally Once a day Not-Taking Calcipotriene 0.005 % 1 application Externally Twice a day Not-Takin g Sertraline HCl 25 MG TAKE 1 TABLET BY MO UT EVERY DAY for 90 Active Doxycycline Monohydrate 100 MG 1 capsule Orally Once a day for 10 day(s) Not-Taking Diprolene AF 0.05 % 1 application to affected area Externally Once a day for 14 days 02/12/2016 Not-Taking Claritin 10 MG 1 capsule Orally Onc e a day for 30 day(s) Active Triamcinolone Acetonide 0.5 % 1 application Externally Two times a Week for 14 days 02/09/2024 Active Calcium 500 MG 1 tablet with meals Orally Twice a day Active Vitamin D 25 MCG (1000 UT) 1 tablet Orally Once a day Active Triamcinolone Acetonide 0.5 % 1 application to affected area Externally Twice a day for 30 Not-Taking Citalopram Hydrobromide 20 MG 1 tablet Orally Once a day for 90 days 09/30/2016 Not-Taking Citalopram Hydrobromide 20 MG 1 tablet Orally Once a day for 30 day(s) 05/14/2019 Not-Taking Encounters Encounter Location Date Provider Diagnosis Yamil Singh MD [address] [place], [place] [address]te [address] [place] [phone] 05/25/2024 Yamil Singh Plan Of Treatment Next Appt Details Provider Name:Yamil montgomery, 02/12/2025 02:15:00 PM, [address] [place] [address], [phone], Provider Name:Yamil montgomery, 09/05/2025 07:15:00 AM, [address] [place] [address], [phone], Provider Name:Yamil montgomery, 09/12/2025 02:30:00 PM, [address] [place] [address], [phone], Progress Notes * Carmelo MCKEONDOB:1955 (69 yo F)Acc No.[id number]:05/25/2024 Patient: Carmelo Angulo Provider: Gayatri Singh MD :1955 A ge:69 Y S ex:Female Date:05/25/2024 Address:[address] [place], [place] [id number] Subjective: * Chief Complaints: * 1 . Cold congested testing her self for covid. * HPI: S ymptom(s): Telehealth L ocation of provider rendering services: [address], [address], L ocation of patient: a t address listed in demographics for today's visit, P atient identification confirmed using: N chris, , SSN, Insurance information, T elehealth method: T elephone only. Patient not visible to care provider., C onsent: P atient verbally consented to treatment, Patient verbally consented to billing insurance company, Patient informed of any privacy concerns related to method of visit. * Medical History: C olonoscopy 2005 due in 10 years; colonoscopy 11/25/14 - repeat [address] middleton, due 11/2019: colonoscopy 01/06/22 repeat 5-7 years, sees [facility] in [place]. * Medications: T aking Claritin 10 MG Capsule 1 capsule Orally Once a day , Taking Calcium 500 MG Tablet 1 tablet with meals Orally Twice a day , Taking Omeprazole 40 MG Capsule Delayed Release TAKE 1 CAPSULE BY MOUTH EVERY DAY , Taking Sertraline HCl 25 MG Tablet TAKE 1 TABLET BY MOUTH EVERY DAY , Taking Triamcinolone Acetonide 0.5 % Cream 1 application Externally Two times a Week , Taking Vitamin D 25 MCG (1000 UT) Tablet 1 tablet Orally Once a day , Not-Taking/PRN Doxycycline Monohydrate 100 MG Capsule 1 capsule Orally Once a day , Not-Taking/PRN Tacrolimus 0.1 % Ointment 1 application Externally Once a day , Not-Taking/PRN Calcipotriene 0.005 % Cream 1 application Externally Twice a day , Not-Taking/PRN Citalopram Hydrobromide 20 MG Tablet 1 tablet Orally Once a day , Not-Taking/PRN Citalopram Hydrobromide 20 MG Tablet 1 tablet Orally Once a day , Not-Taking/PRN Triamcinolone Acetonide 0.5 % Cream 1 application to affected area Externally Twice a day , Not-Taking/PRN Diprolene AF 0.05 % Cream 1 application to affected area Externally Once a day * Allergies: N .K.D.A. Objective: * Vitals: Assessment: Plan: * Treatment: * * The named appointment provid er may or may not be the originator of this progress note, and it is not deemed complete until electronically signed by the appointment provider. Sign off status: Pending * Provider: Gayatri Singh MD Date: 0 05/25/2024 Generated for Trevor adames/Sonia/eTransmitting on: 0 02/08/2025 12:07 PM EDT History and Physical Notes * HPI (History of Present Illness) Category Sub-Category Detail Notes Category Not es Symptom(s) Telehealth Location of prov ider rendering services:: [address], [address] Location of patient:: at address listed in demographics for today's visit Patient identification confirmed using:: Name, , SSN, Insurance information Telehealth method:: Telephone only. Joann ent not visible to care provider. Consent:: Patient verbally c onsented to treatment, Patient verbally consented to billing insurance company, Patient informed of any privacy concerns related to method of visit
--- OUTSIDE RECORDS SUMMARY | 2024-08-06 03:45 | XMS_ITS ---
Author Organization Yamil Singh MD Address [address] [place], [place] [id number] Care Team Providers Care Hog Operator Name Role Phone Yamil Singh Primary Care Provider [phone] Results Component Value Reference Range Notes Complete Blood Count Auto Di ff Reviewed date:08/06/2024 12:43:14 PM Interpretation: Performing Lab:[facility], [address] [place] [phone] Notes/Report: White Blood Count 4.4 4.8-10.8 X10*3/uL Red Blood Count 4.37 4.20-5.50 X10*6/uL Hemoglobin 13.0 12.0-16.0 g/dl Hematocrit 39.5 37.0-47.0 % Mean Corpuscular Volume 90.4 80.0-98.0 fL Mean Corpuscular Hemoglobin 29.7 27.0-33.0 pg Mean Corpuscular HGB Conc 32.9 31.0-35.0 g/dl Red Cell Distribution Width 12.8 11.0-16.0 % Platelet Count 255 160-400 X10*3/uL Mean Platelet Volume 9.8 9.4-12.3 fL Neutrophils Percent Auto 48.8 45-73 % Imm Gran Pct Auto 0.2 0.0-0.4 % Lymphocytes Percent Auto 36.3 20-40 % Monocytes Percent Auto 8.7 2-11 % Eosinophils Percent Auto 4.6 0-4 % Basophils Percent Auto 1.4 0-2 % NRBC Pct Auto 0.0 0.0-0.2 /100WBC Neutrophils Absolute Auto 2.1 2.0-8.3 x10*3/u L Imm Gran Abs Auto 0.01 0.00-0.03 X10*3/uL Lymphocytes Absolute Auto 1.6 1.2-4.9 X10*3/u L Monocytes Absolute Auto 0.4 0.1-1.2 X10*3/uL Eosinophils Absolute Auto 0.2 0.0-0.4 X10*3/u L Basophils Absolute Auto 0.1 0.0-0.2 X10*3/uL NRBC Abs Auto 0.000 0.0-0.012 X10*3/uL Comprehensive [place]. Panel Fa st Reviewed date:08/06/2024 12:37:06 PM Interpretation: Performing Lab:[facility], [address] [place] [phone] Notes/Report: Sodium 143 135-145 mmol/L Potassium 3.9 3.3-5.1 mmol/L Chloride 111 96-108 mmol/L Carbon Dioxide 27 22-29 mmol/L Anion Gap 9 12-20 Blood Urea Nitrogen 9 9-16 mg/dL Creatinine 0.64 0.5-1.4 mg/dL Estimated Glomerular Filt Rate > 60 Chronic Kidney Disease: Estimated GFR < 60 mL/min/1.73m2 Severe Kidney Disease: Estimated GFR < 15 mL/min/1.73m2 Glucose Fasting 135 60-99 mg/dL A fasting glucose of 126 mg/dl or greater on more than one occasion is considered diagnostic of diabetes. Calcium 9.0 8.4-10.2 mg/dL Bilirubin Total 0.4 0.0-1.0 mg/dL Aspartate Amino Transferase 23 5-31 U/L Alanine Aminotransferase 20 0-31 U/L Total Protein 6.8 6.5-8.0 g/dL Albumin Level 3.8 3.5-5.0 g/dL Alkaline Phosphatase 77 39-117 U/L Lipid Panel Reviewed date:08/06/2024 12:36:44 PM Interpretation: Performing Lab:[address] [phone] Notes/Report: Triglycerides 110 <150 mg/dL Desirable Triglyceride: less than 150 mg/dL Borderline High Triglyceride 150-199 mg/dL High Triglyceride: 200-499 mg/dL Very High Triglyceride: greater than or equal to 5OO mg/dL Cholesterol 179 <200 mg/dL Desirable Cholesterol: less than 200 mg/dL Borderline High Cholesterol: 200-239 mg/dL High Cholesterol: greater than 239 mg/dL LDL Cholesterol Calculated 110 <100 mg/dL Desirable LDL: less than 100 mg/dL Near Optimal/Above Optimal LDL: 110-129 mg/dL Borderline High LDL: 130-159 mg/dL High LDL: 160-189 mg/dL Very High LDL: greater than or equal to 190 mg/dL HDL Cholesterol 47 >40 mg/dL Desirable HDL: greater than 40 mg/dL Note: This HDL assay may give artificially low results in patients with liver disease. Vitamin D 25-OH Total Reviewed date:08/06/2024 12:36:51 PM Interpretation: Performing Lab:[address] [phone] Notes/Report: Vitamin D 25-OH Total 62.6 >30 ng/mL Health Based Reference Values* < 20 ng/mL Deficient 20-30 ng/mL Insufficient > 30 ng/mL Sufficient *Dario MASSEY. N Engl J Med. 2007;357:266-280 There is no well-established upper level of normal vitamin D levels. Some laboratories use 50 ng/mL as an upper limit of normal. However, toxicity is patient-dependent and may occur at any level. Careful correlation with the patient's presentation is necessary and, if there is concern for vitamin D toxicity, treatment should be considered irrespective of the serum level. Care must be taken in interpreting Vitamin D results from different laboratories and methodologies. Published data demonstrated that results from patients undergoing hemodialysis may show a negative bias when tested with various automated 25-OH vitamin D assays when compared to LC-MS/MS. When testing samples from patients whose predominant form of Vitamin D is Vitamin D2, such as patients receiving Vitamin D2 supplementation, results that are subtherapeutic should be confirmed with another method such as LC-MS/MS. Microalbumin, Random Reviewed date:08/06/2024 12:36:37 PM Interpretation: Performing Lab:[address] [phone] Notes/Report: Creatinine Urine 106.39 Microalbumin Urine 16.0 Microalbum/Creatinine Ratio Ur 15.0 <30 ug/mg cr Albumin/Creatinine Ratio Reference Ranges: Normal: < 30 ug/mg creatinine Microalbuminuria: 30 - 300 ug/mg creatinine Clinical Albuminuria: > 300 ug/mg creatinine Hemoglobin A1c Reviewed date:08/06/2024 12:36:27 PM Interpretation: Performing Lab:[address] [phone] Notes/Report: Hemoglobin A1c % 6.5 <6.0 % Hemoglobin A1C Reference Range Adults: 4.8 - 6.0 % Non diabetic: < 6.0 % Goal: < 7.0 % Additional Action Suggested: > 8.0 % Note: Hemoglobin A1c results are invalid for patients with abnormal amounts of HbF. Blood transfusions may impact the HbA1c concentration in the patient sample. Estimated Average Glucose 140 eAG = Estimated average glucose which is %A1C expressed as average glucose, using the formula of the B4O-Vpivcii Average Glucose study (ADAG), Diabetes Care, Vol.31,#8, Dec. 2007 UA ClnCatch+Micro w/rflx Cul t Reviewed date:08/06/2024 05:10:42 PM Interpretation: Performing Lab:[address] [phone] Notes/Report: Urine, Clean Catch Color Urine Yellow Appearance Urine Clear PH 6.5 5.0-9.0 Glucose Urine UA Negative Negative mg/dL Urine Blood Negative Negative Specific [place] - Urine 1.020 1.005-1.025 Urine Protein Negative Neg-Trace mg/dL Urine Ketones Negative Negative mg/dL Nitrite Urine Negative Negative Leukocyte Esterase Urine Small (1+) Negative RBC Urine 0-2 0-2 /HPF WBC Urine 11-20 0-5 /HPF Squamous Epithelial Cell Urine 0-2 0-2 /HPF Bacteria Urine None Seen None Seen Hyaline Casts Urine 0-2 0-2 /LPF REASON FOR VISIT FASTING LABS Encounters Encounter Location Date Provider Diagnosis Yamil Singh MD [address] [place] [id number] 08/06/2024 Yamil Singh Blood tests for routine general physical examination Z00.00 ; Type 2 diabetes mellitus without complication, without long-term current use of insulin E11.9 ; Vitamin D deficiency E55.9 and Lymphocytosis D72.820 Assessments Encounter Date Diagnosis (ICD Code) Assessment Notes Treatment Notes Treatment Clinical Notes Section Notes 08/06/2024 Blood tests for routine general physical examination (ICD-10 - Z00.00) 08/06/2024 Type 2 diabetes mellitus without complication, without long-term current use of insulin (ICD-10 - E11.9) 08/06/2024 Vitamin D deficiency (ICD-10 - E55.9) 08/06/2024 Lymphocytosis (ICD-10 - D72.820) Plan Of Treatment Next Appt Details Provider Name:Yamil montgomery, 02/12/2025 02:15:00 PM, [address] [place] [address], [phone], Provider Name:Yamil montgomery, 09/05/2025 07:15:00 AM, [address] [place] [address], [phone], Provider Name:Yamil montgomery, 09/12/2025 02:30:00 PM, [address] [place] [address], [phone], Progress Notes * Carmelo MCKEONDOB:1955 (69 yo F)Acc No.[id number]:08/06/2024 Progress Note Patient: Carmelo Angulo Provider: Gayatri Singh MD :1955 A ge:69 Y S ex:Female Date:08/06/2024 Address:[address], [place], [place] Subjective: * Chief Complaints: * 1 . FASTING LABS. * Medical History: Objective: * Vitals: Assessment: * Assessment: 1. B lood tests for routine general physical examination - Z00.00 (Primary) 2 .?Type 2 diabetes mellitus without complication, without long-term current use of insulin - E11.9 3 . V itamin D deficiency - E55.9 4 . L ymphocytosis - D72.820 Plan: * Treatment: 2. T ype 2 diabetes mellitus without complication, without long-term current use of insulin L AB: Complete Blood Count Auto Diff (Collection Date & Time - 08/06/2024 07:45 AM) L AB: Comprehensive [place]. Panel Fast (Collection Date & Time - 08/06/2024 07:45 AM) L AB: Lipid Panel (Collection Date & Time - 08/06/2024 07:45 AM) L AB: Vitamin D 25-OH Total (Collection Date & Time - 08/06/2024 07:45 AM) L AB: Microalbumin, Random (Collection Date & Time - 08/06/2024 07:45 AM) L AB: Hemoglobin A1c (Collection Date & Time - 08/06/2024 07:45 AM) L AB: UA ClnCatch+Micro w/rflx Cult (Collection Date & Time - 08/06/2024 07:45 AM) 3. V itamin D deficiency L AB: Complete Blood Count Auto Diff (Collection Date & Time - 08/06/2024 07:45 AM) L AB: Comprehensive [place]. Panel Fast (Collection Date & Time - 08/06/2024 07:45 AM) L AB: Lipid Panel (Collection Date & Time - 08/06/2024 07:45 AM) L AB: Vitamin D 25-OH Total (Collection Date & Time - 08/06/2024 07:45 AM) L AB: Microalbumin, Random (Collection Date & Time - 08/06/2024 07:45 AM) L AB: Hemoglobin A1c (Collection Date & Time - 08/06/2024 07:45 AM) L AB: UA ClnCatch+Micro w/rflx Cult (Collection Date & Time - 08/06/2024 07:45 AM) 4. L ymphocytosis L AB: Complete Blood Count Auto Diff (Collection Date & Time - 08/06/2024 07:45 AM) L AB: Comprehensive [place]. Panel Fast (Collection Date & Time - 08/06/2024 07:45 AM) L AB: Lipid Panel (Collection Date & Time - 08/06/2024 07:45 AM) L AB: Vitamin D 25-OH Total (Collection Date & Time - 08/06/2024 07:45 AM) L AB: Microalbumin, Random (Collection Date & Time - 08/06/2024 07:45 AM) L AB: Hemoglobin A1c (Collection Date & Time - 08/06/2024 07:45 AM) L AB: UA ClnCatch+Micro w/rflx Cult (Collection Date & Time - 08/06/2024 07:45 AM) * Procedure Codes: 3 6415 VENIPUNCT, ROUTINE* * * The named appointment provid er may or may not be the originator of this progress note, and it is not deemed complete until electronically signed by the appointment provider. Sign off status: Pending * Provider: Gayatri Singh MD Date: 0 08/06/2024 Generated for Trevor adames/Sonia/Marceloitting on: 0 02/08/2025 12:08 PM EDT
--- OUTSIDE RECORDS SUMMARY | 2024-08-13 10:30 | XMS_ITS ---
Author Organization Yamil Singh MD Address [address] [place] [phone] Care Team Providers Care Solar Design Engineer Name Role Phone Yamil Singh Primary Care Provider [phone] Allergies No Known Allergies REASON FOR VISIT COMP EXAM, CBACK BONE DENSITY Medications Medication SIG (Take, Route, Frequency, Duration) Notes Start Date End Date Status Sertraline HCl 25 MG TAKE 1 TABLET BY MO UT EVERY DAY Active Claritin 10 MG 1 capsule Orally Onc e a day for 30 day(s) Active Triamcinolone Acetonide 0.5 % 1 application to affected area Externally Twice a day for 30 Not-Taking Omeprazole 40 MG TAKE 1 CAPSULE BY MO UTH EVERY DAY Active Diprolene AF 0.05 % 1 application to affected area Externally Once a day for 14 days 02/12/2016 Not-Taking Citalopram Hydrobromide 20 MG 1 tablet Orally Once a day for 30 day(s) 05/14/2019 Not-Taking Calcipotriene 0.005 % 1 application Externally Twice a day Not-Takin g Citalopram Hydrobromide 20 MG 1 tablet Orally Once a day for 90 days 09/30/2016 Not-Taking Tacrolimus 0.1 % 1 application Externally Once a day Not-Taking Vitamin D 25 MCG (1000 UT) 1 tablet Orally Once a day Active Doxycycline Monohydrate 100 MG 1 capsule Orally Once a day for 10 day(s) Not-Taking Triamcinolone Acetonide 0.5 % 1 application Externally Two times a Week for 14 days 02/09/2024 Active Calcium 500 MG 1 tablet with meals Orally Twice a day Active Social History Tobacco Use: Social History Observation Description Date Details (start date - stop date) Never Smoker NA - NA Tobacco Use/Smoking Question Answer Notes Patient is a nonsmoker Additional Findings: Tobacco Non-User Cu rrent non-smoker, currently using no form of tobacco Alcohol Screen Question Answer Notes Did you have a drink containing alcohol in the p ast year? No Points 0 Interpretation Negative Vital Signs Blood pressure systolic 112 mm Hg 08/14/19 25 Blood pressure diastolic 60 mm Hg 025 Height 65 in 08/13/2024 Weight 139 lbs 08/13/2024 BMI 23.13 kg/m2 08/13/2024 Encounters Encounter Location Date Provider Diagnosis Yamil Singh MD [address] [place] [address] [place] [phone] 08/13/2024 Yamil Singh Age-related osteoporosis without current pathological fracture M81.0 ; Pancreatic malignant neoplasm 157.9 ; Neuroendocrine tumor D3A.8 ; Type 2 diabetes mellitus without complication, without long-term current use of insulin E11.9 ; Dysthymia F34.1 ; Reflux esophagitis K21.00 and Depression screening Z13.31 Assessments Encounter Date Diagnosis (ICD Code) Assessment Notes Treatment Notes Treatment Clinical Notes Section Notes 08/13/2024 Age-related osteoporosis without current pathological fracture (ICD-10 - M81.0) is just a little worse. will recheck in one year/ order for bone desity printed and put on future folder 08/13/2024 Pancreatic malignant neoplasm (ICD9-CM - 157.9) 08/13/2024 Neuroendocrine tumor (ICD-10 - D3A.8) followed at [facility]/ [place] [facility] [place] visit dr garrido in oncology 08/13/2024 Type 2 diabetes mellitus without complication, without long-term current use of insulin (ICD-10 - E11.9) stable, will continue to monitor 08/13/2024 Dysthymia (ICD-10 - F34.1) stable, doing well, will continue current regiment 08/13/2024 Reflux esophagitis (ICD-10 - K21.00) stable, will continue current regiment 08/13/2024 Depression screening (ICD-10 - Z13.31) negative screen 08/13/2024 Other [place] [facility] [place] Plan Of Treatment Medication Medication Name Sig Start Date Stop Date Notes Sertraline HCl 25 MG TAKE 1 TABLET BY [facility] EVERY DAY Omeprazole 40 MG TAKE 1 CAPSULE BY MO [facility] EVERY DAY Vitamin D 25 MCG (1000 UT) 1 tablet Orally Once a day Treatment Notes Assessment Notes Age-related osteoporosis wit hout current pathological fracture is just a little worse. will recheck in one year/ order for bone desity printed and put on future folder Neuroendocrine tumor [place] [facility] [place] cynthia cuello/ need records from [facility] [place] from last visit dr garrido in oncology Type 2 diabetes mellitus wit hout complication, without long-term current use of insulin stable, will continue to monitor Dysthymia stable, doing well, will continue current regiment Reflux esophagitis stable, will continu e current regiment Depression screening negative screen Other need [place] [facility] [place] Future Test Test Name Order Date BONE DENSITY DEXA 08/13/2025 Next Appt Details Follow Up: 6 Months, Reason: dm Provider Name:Yamil montgomery, 02/12/2025 02:15:00 PM, [address] [place] [address], [place] [address], [place], [place], [phone], Provider Name:Yamil montgomery, 09/05/2025 07:15:00 AM, [address] [place] [address], Suite [facility], [place], [phone], Provider Name:Yamil montgomery, 09/12/2025 02:30:00 PM, [address] [place] [address], Suite [facility], [place], [phone], Progress Notes * Chapin MCKEON:1955 (69 yo F)Acc No.[id number]:08/13/2024 Patient: Carmelo Angulo Provider: Gayatri Singh MD :1955 A ge:69 Y S ex:Female Date:08/13/2024 Address:[address] [place] [address] Subjective: * Chief Complaints: * C OMP EXAMCBACK BONE DENSITY * HPI: D epression Screening: PHQ-9 L ittle interest or pleasure in doing things N ot at all, F eeling down, depressed, or hopeless N ot at all, T rouble falling or staying asleep, or sleeping too much N ot at all, F eeling tired or having little energy N ot at all, P oor appetite or overeating N ot at all, F eeling bad about yourself or that you are a failure, or have let yourself or your family down N ot at all, T rouble concentrating on things, such as reading the newspaper or watching television N ot at all, M oving or speaking so slowly that other people could have noticed; or the opposite, being so fidgety or restless that you have been moving around a lot more than usual N ot at all, T houghts that you would be better off or of hurting yourself in some way N ot at all, T otal Score 0 . I nterpretation and Intervention D epression Screening Findings N egative, F ollow-Up for Depression : review of PHQ-9 found negative result, no follow-up needed. patient is a 69 yo female here for annual visit with review of recent labs and follow up of chronic issues. C ommunication Needs: Communication Needs D oes the patient have a hearing impairment N o, D oes the patient have a vision impairment? Y es, I f yes, what is the vision impairment? G lasses, D oes the patient have a cognition impairment? N o. S PETRA Questions: SDOH Questions I n the past year have you been worried about losing housing? N o, I n the past year have you or any family members you live with been unable to get any of the following when it was really needed? Check all that apply: N one. F all Risk: History H ave you had any falls with injury in the past year? N o, H ave you had two or more falls in the past year? N o. * ROS: G eneral/Constitutional: Change in appetite d enies. C hills d enies. F ever d enies. O phthalmologic: Blurred vision d enies. D ischarge d enies. P ain d enies. E NT: Decreased hearing d enies. S ore throat d enies.?Swollen glands d enies. E ndocrine: Cold intolerance d enies. E xcessive thirst d enies. H eat intolerance d enies. W eight loss d enies. R espiratory: Cough d enies. S hortness of breath at rest d enies. S hortness of breath with exertion d enies. W heezing d enies. C ardiovascular: Chest pain at rest d enies. C hest pain with exertion?denies. I rregular heartbeat d enies. S hortness of breath d enies. ? G astrointestinal: Abdominal pain d enies. C hange in bowel habits d enies. D iarrhea d enies. N ausea d enies. R ectal bleeding d enies. V omiting d enies . G enitourinary: Blood in urine d enies. D ifficulty urinating d enies. F requent urination d enies. U rinary incontinence D enies. M usculoskeletal: Painful joints d enies. W eakness d enies. ? S kin: Dry skin d enies. I tching d enies. D enies?Mole(s), changes in moles, new moles or any lesions of concern. D enies P hotosensitivity. R raymond d enies. N eurologic: Dizziness d enies. F ainting d enies. H eadache?denies. * Medical History: * Surgical History: * Hospitalization/Major Diagno stic Procedure: * Family History: F ather: 68 yrs. M other: alive 94 yrs. 1 brother(s) , 3 sister(s) . 2 daughter(s) . . Father- Cardiac Mother- Healthy, Denies mental health/substance abuse family history, No pertinent family medical history. * Social History: T obacco Use: T obacco Use/Smoking P atient is a n onsmoker, Ashlyn dditional Findings: Tobacco Non-User C urrent non-smoker, currently using no form of tobacco. D rugs/Alcohol: A lcohol Screen D id you have a drink containing alcohol in the past year? N o, P oints 0 , I nterpretation N egative. M iscellaneous: C affeine: no. Children: yes. Community involvements: no. Exercise: yes, walks 3 times a week for 1 hour. Housing: owning. Living with: family. Marital status: . Occupation: unemployed. Pets: none. Travel outside of the [place]: yes, [place] 03-06 to 07-08. * Medications: T akingClaritin 10 MG Capsule 1 capsule Orally Once a day Calcium 500 MG Tablet 1 tablet with meals Orally Twice a day Triamcinolone Acetonide 0.5 % Cream 1 application Externally Two times a Week Vitamin D 25 MCG (1000 UT) Tablet 1 tablet Orally Once a day Omeprazole 40 MG Capsule Delayed Release TAKE 1 CAPSULE BY MOUTH EVERY DAY Sertraline HCl 25 MG Tablet TAKE 1 TABLET BY MOUTH EVERY DAY Taking Claritin 10 MG Capsule 1 capsule Orally Once a day Taking Calcium 500 MG Tablet 1 tablet with meals Orally Twice a day Taking Triamcinolone Acetonide 0.5 % Cream 1 application Externally Two times a Week Taking Vitamin D 25 MCG (1000 UT) Tablet 1 tablet Orally Once a day Taking Omeprazole 40 MG Capsule Delayed Release TAKE 1 CAPSULE BY MOUTH EVERY DAY Taking Sertraline HCl 25 MG Tablet TAKE 1 TABLET BY MOUTH EVERY DAY Not-Taking/PRNDoxycycline Monohydrate 100 MG Capsule 1 capsule Orally Once a day Tacrolimus 0.1 % Ointment 1 application Externally Once a day Calcipotriene 0.005 % Cream 1 application Externally Twice a day Citalopram Hydrobromide 20 MG Tablet 1 tablet Orally Once a day Citalopram Hydrobromide 20 MG Tablet 1 tablet Orally Once a day Triamcinolone Acetonide 0.5 % Cream 1 application to affected area Externally Twice a day Diprolene AF 0.05 % Cream 1 application to affected area Externally Once a day Medication List reviewed and reconciled with the patientNot-Taking/PRN Doxycycline Monohydrate 100 MG Capsule 1 capsule Orally Once a day Not-Taking/PRN Tacrolimus 0.1 % Ointment 1 application Externally Once a day Not-Taking/PRN Calcipotriene 0.005 % Cream 1 application Externally Twice a day Not-Taking/PRN Citalopram Hydrobromide 20 MG Tablet 1 tablet Orally Once a day Not-Taking/PRN Citalopram Hydrobromide 20 MG Tablet 1 tablet Orally Once a day Not-Taking/PRN Triamcinolone Acetonide 0.5 % Cream 1 application to affected area Externally Twice a day Not-Taking/PRN Diprolene AF 0.05 % Cream 1 application to affected area Externally Once a day Medication List reviewed and reconciled with the patient * Allergies: N .K.D.A.yes[Allergies Verified] Objective: * Vitals: H t: 65, Wt: 139, BMI:23.13, BP:112/60, Wt-k.05. * P ast Orders: L ab:Hemoglobin A1c (Order Date - 08/06/2024) (Collection Date & Time - 08/06/2024 07:45 AM) Value Reference Range Hemoglobin A1c % 6.5 H <6.0 - % Estimated Average Glucose 140 - mg/dL L ab:Complete Blood Count Auto Diff (Order Date - 08/06/2024) (Collection Date & Time - 08/06/2024 07:45 AM) Value Reference Range White Blood Count 4.4 L 4.8-10.8 - X10*3/uL Red Blood Count 4.37 4.20-5.50 - X10*6/uL Hemoglobin 13.0 12.0-16.0 - g/dl Hematocrit 39.5 37.0-47.0 - % Mean Corpuscular Volume 90.4 80.0-98.0 - fL Mean Corpuscular Hemoglobin 29.7 27.0-33.0 - pg Mean Corpuscular HGB Conc 32.9 31.0-35.0 - g/ dl Red Cell Distribution Width 12.8 11.0-16.0 - % Platelet Count 255 160-400 - X10*3/uL Mean Platelet Volume 9.8 9.4-12.3 - fL Neutrophils Percent Auto 48.8 45-73 - % Imm Gran Pct Auto 0.2 0.0-0.4 - % Lymphocytes Percent Auto 36.3 20-40 - % Monocytes Percent Auto 8.7 2-11 - % Eosinophils Percent Auto 4.6 H 0-4 - % Basophils Percent Auto 1.4 0-2 - % NRBC Pct Auto 0.0 0.0-0.2 - /100WBC Neutrophils Absolute Auto 2.1 2.0-8.3 - x10* 3/uL Imm Gran Abs Auto 0.01 0.00-0.03 - X10*3/uL Lymphocytes Absolute Auto 1.6 1.2-4.9 - X10* 3/uL Monocytes Absolute Auto 0.4 0.1-1.2 - X10*3/ uL Eosinophils Absolute Auto 0.2 0.0-0.4 - X10* 3/uL Basophils Absolute Auto 0.1 0.0-0.2 - X10*3/ uL NRBC Abs Auto 0.000 0.0-0.012 - X10*3/uL L ab:UA ClnCatch+Micro w/rflx Cult (Order Date - 08/06/2024) (Collection Date & Time - 08/06/2024 07:45 AM) Value Reference Range Color Urine Yellow - Appearance Urine Clear - PH 6.5 5.0-9.0 - Glucose Urine UA Negative Negative - mg/dL Urine Blood Negative Negative - Specific [place] - Urine 1.020 1.005-1.025 - Urine Protein Negative Neg-Trace - mg/dL Urine Ketones Negative Negative - mg/dL Nitrite Urine Negative Negative - Leukocyte Esterase Urine Small (1+) A Negative - RBC Urine 0-2 0-2 - /HPF WBC Urine 11-20 A 0-5 - /HPF Squamous Epithelial Cell Urine 0-2 0-2 - /HP F Bacteria Urine None Seen None Seen - Hyaline Casts Urine 0-2 0-2 - /LPF L ab:Comprehensive [place]. Panel Fast (Order Date - 08/06/2024) (Collection Date & Time - 08/06/2024 07:45 AM) Value Reference Range Sodium 143 135-145 - mmol/L Bilirubin Total 0.4 0.0-1.0 - mg/dL Aspartate Amino Transferase 23 5-31 - U/L Alanine Aminotransferase 20 0-31 - U/L Total Protein 6.8 6.5-8.0 - g/dL Albumin Level 3.8 3.5-5.0 - g/dL Alkaline Phosphatase 77 39-117 - U/L Potassium 3.9 3.3-5.1 - mmol/L Chloride 111 H 96-108 - mmol/L Carbon Dioxide 27 22-29 - mmol/L Anion Gap 9 L 12-20 - Blood Urea Nitrogen 9 9-16 - mg/dL Creatinine 0.64 0.5-1.4 - mg/dL Estimated Glomerular Filt Rate > 60 - Glucose Fasting 135 H 60-99 - mg/dL Calcium 9.0 8.4-10.2 - mg/dL L ab:Lipid Panel (Order Date - 08/06/2024) (Collection Date & Time - 08/06/2024 07:45 AM) Value Reference Range Triglycerides 110 <150 - mg/dL Cholesterol 179 <200 - mg/dL LDL Cholesterol Calculated 110 H <100 - mg/dL HDL Cholesterol 47 >40 - mg/dL L ab:Vitamin D 25-OH Total (Order Date 08/06/2024) (Collection Date & Time - 08/06/2024 07:45 AM) Value Reference Range Vitamin D 25-OH Total 62.6 >30 - ng/mL L ab:Microalbumin, Random (Order Date 08/06/2024) (Collection Date & Time - 08/06/2024 07:45 AM) Value Reference Range Creatinine Urine 106.39 - mg/dL Microalbumin Urine 16.0 - mg/L Microalbum Creatinine Ratio Ur 15.0 <30 - ug/ mg cr L ab:Urine Culture (Order Date 08/06/2024) (Collection Date & Time - 08/06/2024) Value Reference Range Urine Culture No growth. - * Examination: G eneral Examination: GENERAL APPEARANCE: w ell developed, well nourished, in no acute distress. HEAD: n ormocephalic, atraumatic. EYES: p upils equal, round, reactive to light and accommodation, sclera non-icteric. EARS: n ormal. ORAL CAVITY: m ucosa moist. THROAT: c lear. NECK/THYROID: n blaine supple, full range of motion, no cervical lymphadenopathy, no bruits. SKIN: w arm and dry, no suspicious lesions. HEART: r egular rate and rhythm, S1, S2 normal, no murmurs.? LUNGS: c lear to auscultation bilaterally. BREASTS: N o mass, no lump. ABDOMEN: s oft, nontender, nondistended, bowel sounds present, normal, no organomegaly , no masses palpable. RECTAL EXAM: d one by drafter castings. FEMALE GENITOURINARY: d one by drafter castings. EXTREMITIES: n o clubbing, cyanosis, or edema. NEUROLOGIC: n onfocal, motor strength normal upper and lower extremities, sensory exam intact. Assessment: * Assessment: 1. A ge-related osteoporosis without current pathological fracture - M81.0 (Primary) 2 . P ancreatic malignant neoplasm - 157.9 3 . N euroendocrine tumor - D3A.8 4 . T ype 2 diabetes mellitus without complication, without long-term current use of insulin - E11.9 5 . D ysthymia - F34.1 6 . R eflux esophagitis - K21.00 7 . D epression screening - Z13.31 Plan: * Treatment: 2. N euroendocrine tumor I maging: BONE DENSITY DEXA (Ordered for 08/13/2025) Notes: [facility]/ [place] [facility] [place] from last visit dr garrido in oncology 3. T ype 2 diabetes mellitus without complication, without long-term current use of insulin Notes: stable, will continue to monitor 4. D ysthymia Continue Sertraline HCl Tablet, 25 MG, TAKE 1 TABLET BY MOUTH EVERY DAY. Notes: stable, doing well, will continue current regiment 5. R eflux esophagitis Continue Omeprazole Capsule Delayed Release, 40 MG, TAKE 1 CAPSULE BY MOUTH EVERY DAY. Notes: stable, will continue current regiment 6. D epression screening Notes: negative screen 7. O thers Notes: [place] [facility] [place] * Procedure Codes: G 2211 Complex e/m visit add on * Preventive Medicine: Diabetes Care Plan: P atient Lifestyle Goals N eeds to maintain diet control.?Treatment Goals A 1C< 7. B arriers N o specific barriers, doing well. S elf-Managment Plan I ncrease light exercise to 3 times a week for 30 minutes. E xpected Outcome maintaining stable blood sugar levels within a target range. * Follow Up: 6 Months (Reason: dm) * * Sign off status: Completed true * Provider: Gayatri Singh MD Date: 0 08/13/2024 Generated for Trevor adames/Sonia/[place] on: 0 02/08/2025 12:07 PM EDT History and Physical Notes * HPI (History of Present Illness) Category Sub-Category Detail Notes Category Not es Depression Screening PHQ-9 Little inte rest or pleasure in doing things: Not at all patient is a 69 yo female here for annual visit with review of recent labs and follow up of chronic issues. Feeling down, depressed, or hopeless: No t at all Trouble falling or staying asleep, or sl eeping too much: Not at all Feeling tired or having little energy: N ot at all Poor appetite or overeating: Not at all Feeling bad about yourself o r that you are a failure, or have let yourself or your family down: Not at all Trouble concentrating on thi ngs, such as reading the newspaper or watching television: Not at all Moving or speaking so slowly that other people could have noticed; or the opposite, being so fidgety or restless that you have been moving around a lot more than usual: Not at all Thoughts that you would be b jason off or of hurting yourself in some way: Not at all Total Score: 0 Interpretation and Intervention Depression Zaria adelia Findings: Negative Follow-Up for Depression: : review of PH Q-9 found negative result, no follow-up needed SDOH Questions SDOH Questions In the past year have you been worried about losing housing?: No In the past year have you or any family members you live with been unable to get any of the following when it was really needed? Check all that apply:: None Fall Risk History Have you had any falls with injury i n the past year?: No Have you had two or more falls in the st year?: No Communication Needs Communication Needs Does the patient have a hearing impairment: No Does the patient have a vision impairmen t?: Yes If yes, what is the vision impairment?: Glasses Does the patient have a cognition impair ment?: No Examination Category Sub-Category Detail Notes Category Not es General Examination GENERAL APPEARANCE: well dev eloped, well nourished, in no acute distress HEAD: normocephalic, atrau matic EYES: pupils equal, round, reactive to light and accommodation, sclera non-icteric EARS: normal THROAT: clear NECK/THYROID: neck supple, full ra nge of motion, no cervical lymphadenopathy, no bruits HEART: regular rate and rhy thm, S1, S2 normal, no murmurs LUNGS: clear to auscultatio n bilaterally ABDOMEN: soft, nontender, non distended, bowel sounds present, normal, no organomegaly , no masses palpable NEUROLOGIC: nonfocal, motor stre ngth normal upper and lower extremities, sensory exam intact SKIN: warm and dry, no tonny picious lesions EXTREMITIES: no clubbing, cyanosi s, or edema BREASTS: No mass, no lump RECTAL EXAM: done by drafter castings FEMALE GENITOURINARY: done by drafter castings ORAL CAVITY: mucosa moist
--- OUTSIDE RECORDS SUMMARY | 2025-02-08 03:45 | XMS_ITS ---
Author Organization Yamil Singh MD Address [address] [place], [place] [id number] Care Team Providers Care [place] Department Manager Name Role Phone Yamil Singh Primary Care Provider Results Component Value Reference Range Notes Lipid Panel (Not yet reviewe d by provider) Interpretation: Performing Lab:[facility], [address] [place] [phone] Notes/Report: Triglycerides 63 <150 mg/dL Desirable Triglyceride: less than 150 mg/dL Borderline High Triglyceride 150-199 mg/dL High Triglyceride: 200-499 mg/dL Very High Triglyceride: greater than or equal to 5OO mg/dL Cholesterol 169 <200 mg/dL Desirable Cholesterol: less than 200 mg/dL Borderline High Cholesterol: 200-239 mg/dL High Cholesterol: greater than 239 mg/dL LDL Cholesterol Calculated 106 <100 mg/dL Desirable LDL: less than 100 mg/dL Near Optimal/Above Optimal LDL: 110-129 mg/dL Borderline High LDL: 130-159 mg/dL High LDL: 160-189 mg/dL Very High LDL: greater than or equal to 190 mg/dL HDL Cholesterol 51 >40 mg/dL Desirable HDL: greater than 40 mg/dL Note: This HDL assay may give artificially low results in patients with liver disease. REASON FOR VISIT fasting lipids Problems Problem Type SNOMED Code ICD Code Onset Dates Problem Status W/U Status Risk Notes Problem Pure hypercholesterolemia (184394699) Elevated LDL cholesterol level (E78.00) Active confirmed Encounters Encounter Location Date Provider Diagnosis Yamil Singh MD [address] [place] [phone] 02/08/2025 Yamil Singh Elevated LDL cholesterol level E78.00 Assessments Encounter Date Diagnosis (ICD Code) Assessment Notes Treatment Notes Treatment Clinical Notes Section Notes 02/08/2025 Elevated LDL cholesterol level (ICD-10 - E78.00) Plan Of Treatment Pending Test Test Name Order Date Lipid Panel 02/08/2025 Next Appt Details Provider Name:Yamil montgomery, 02/12/2025 02:15:00 PM, [address] [place] [address], [address], [phone], Provider Name:Yamil montgomery, 09/05/2025 07:15:00 AM, [address] [place] [address], [address], [phone], Provider Name:Yamil montgomery, 09/12/2025 02:30:00 PM, [address] [place] [address], [address], [phone], Progress Notes * Carmelo MCKEONDOB:1955 (69 yo F)Acc No.[id number]:02/08/2025 Progress Note Patient: Carmelo Angulo Provider: Gayatri Singh MD :1955 A ge:69 Y S ex:Female Date:02/08/2025 Address:[address] [place] [address] Subjective: * Chief Complaints: * 1 . Fasting lipids. * Medical History: Objective: * Vitals: Assessment: * Assessment: 1. E levated LDL cholesterol level - E78.00 (Primary) Plan: * Treatment: * Procedure Codes: 3 6415 VENIPUNCT, ROUTINE* * * The named appointment provid er may or may not be the originator of this progress note, and it is not deemed complete until electronically signed by the appointment provider. Sign off status: Pending * Provider: Gayatri Singh MD Date: 0 02/08/2025 Generated for Trevor adames/Sonia/Marceloitting on: 02/08/2025 12:08 PM EDT
[2025-02-08 11:18] LABS: Cholesterol 169 mg/dL (<200); HDL Cholesterol 51 mg/dL (>40); Triglycerides 63 mg/dL (<150)
--- OUTSIDE RECORDS SUMMARY | 2025-02-08 12:08 | XMS_ITS | Encounter Summary ---
Author Organization [facility] Address [address] [place] [address] Phone Care Team Providers Care Load Out Supervisor Name Role Phone Yamil Singh MD Primary Care Provider Encounter Details Date Type Department Care Team (Late st Contact Info) Description 01/19/2024 Procedure Pass MRI, [facility] - [address], [address] [place] [address] Social History Tobacco Use Types Packs/Day Years Used Date Smoking Tobacco: Never Assessed Digital Access Answer Date Recorded No 10/11/2022 No 10/11/2022 No 10/11/2022 Reliable internet access at home? Not on file 10/11/2022 Device with a working camera? Not on file Comments Unknown Sex and Gender Information Value Date Recorded Sex Assigned at Not on file Legal Sex Female 7:15 PM EST Gender Identity Not on file Sexual Orientation Not on file documented as of this encounter Plan of Treatment Upcoming Encounters Date Type Department Care Team (Late st Contact Info) Description 10/23/2024 Procedure Pass MRI, [facility] [place] [address] [facility], [address] [place] [address] 02/27/2025 11:30 AM EDT Blood Draw [address] [place] [address] Silvio Spear MD [address] [place] [address] [email or web address] 03/05/2025 1:30 PM EDT Telemedicine [facility] [address], 7[address], [address] [place] [address] Silvio Spear MD [address] [facility] [address] [place] [address] [email or web address] Kaylin Dorado, LEÓN [address] [facility] [address] [place] [address] [email or web address] 04/12/2025 12:30 PM EST Appointment MRI, [facility] - [address], [address] [place] [address] Silvio Spear MD [address] [facility] [address] [place] [address] [email or web address] documented as of this encounter Visit Diagnoses Not on filedocumented in this encounter Care Teams Load Out Supervisor Relationship Specialty Start Date End Date Yamil Singh MD [address] [place] [address] [place] [address] PCP - General Internal Medicine 09/20/22 documented as of this encounter Additional Source Comments The information contained in this document represents components of the legal health record. It is not the complete legal health record.[facility]
--- OUTSIDE RECORDS SUMMARY | 2025-02-08 12:08 | XMS_ITS | Encounter Summary ---
Author Organization [facility] Address [address] [facility] [address] [place] [address] Phone Care Team Providers Care Vice President Supply Chain Name Role Phone Yamil Singh MD Primary Care Provider Encounter Details Date Type Department Care Team (Late st Contact Info) Description 07/30/2024 Procedure Pass [facility] - Pet Scan, [facility] [address] [place] [address] Social History Tobacco Use Types Packs/Day Years [...] Contact Info) Description 10/23/2024 Procedure Pass MRI, [facility] [place] [address] [facility], [address] [place] [address] 02/27/2025 11:30 AM EDT Blood Draw [facility] [address] [facility] [address] [place] [address] Silvio Spear MD [address] [place] [address] [email or web address] 03/05/2025 1:30 PM EDT Telemedicine [facility] [address] 7[address], [address] [place] [address] Silvio Spear MD [address] [facility] [address] [place] [address] [email or web address] Kaylin Dorado, LEÓN [address] [facility] [address] [place] [address] [email or web address] 04/12/2025 12:30 PM EST Appointment MRI, [facility] - [address], [address] [place] [address] Silvio Spear MD [address] [facility] [address] [place] [address] [email or web address] documented as of this encounter Visit Diagnoses Not on filedocumented in this encounter Care Teams Vice President Supply Chain Relationship Specialty Start Date End Date Yamil Singh MD [address] [place] [address] [place] [address] PCP - General Internal Medicine 09/20/22 documented as of this encounter Additional Source Comments The information contained in this document represents components of the legal health record. It is not the complete legal health record.[facility]
--- OUTSIDE RECORDS SUMMARY | 2025-02-08 12:08 | XMS_ITS | Encounter Summary ---
Author Organization [facility] Address [address] [facility] [address] [place] [address] Phone Care Team Providers Care Director Of Event Management Name Role Phone Yamil Singh MD Primary Care Provider Encounter Details Date Type Department Care Team (Late st Contact Info) Description 08/13/2024 Procedure Pass MRI, [facility] - [address], [address] [place] [address] Social History Tobacco Use Types Packs/Day Years [...] Contact Info) Description 10/23/2024 Procedure Pass MRI, [facility] [place] [address] [facility], [address] [place] [address] 02/27/2025 11:30 AM EDT Blood Draw [address] [place] [address] Silvio Spear MD [address] [place] [address] [email or web address] 03/05/2025 1:30 PM EDT Telemedicine [facility] [address] [facility], 7th [address], [address] [place] [address] Silvio Spear MD [address] [facility] [address] [place] [address] [email or web address] Kaylin Dorado, LEÓN [address] [facility] [address] [place] [address] [email or web address] 04/12/2025 12:30 PM EST Appointment MRI, [facility] - [address], [address] [place] [address] Silvio Spear MD [address] [facility] [address] [place] [address] [email or web address] documented as of this encounter Visit Diagnoses Not on filedocumented in this encounter Care Teams Director Of Event Management Relationship Specialty Start Date End Date Yamil Singh MD [address] [place] [address] [place] [address] PCP - General Internal Medicine 09/20/22 documented as of this encounter Additional Source Comments The information contained in this document represents components of the legal health record. It is not the complete legal health record.[facility]
--- OUTSIDE RECORDS SUMMARY | 2025-02-08 12:08 | XMS_ITS | Patient Health Record ---
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 Name Role Phone Yamil Singh Primary Care Provider Allergies No Known Allergies Results Component Value Reference Range Notes Hemoglobin A1c Reviewed date:02/09/2024 02:19:20 PM Interpretation: Performing Lab: Notes/Report: Hemoglobin A1c 6.4 Complete Blood Count Auto Di ff Reviewed date:08/06/2024 12:43:14 PM Interpretation: Performing Lab:[facility], [address] [place] [phone] Notes/Report: White Blood Count 4.4 4.8-10.8 X10*3/uL [...] 0.0-0.2 /100WBC Neutrophils Absolute Auto 2.1 2.0-8.3 x10*3/uL Imm Gran Abs Auto 0.01 0.00-0.03 X10*3/uL Lymphocytes Absolute Auto 1.6 1.2-4.9 X10*3/uL Monocytes Absolute Auto 0.4 0.1-1.2 X10*3/uL Eosinophils Absolute Auto 0.2 0.0-0.4 X10*3/uL Basophils Absolute Auto 0.1 0.0-0.2 X10*3/uL NRBC Abs Auto 0.000 0.0-0.012 X10*3/uL Comprehensive Carman. Panel Fa st Reviewed date:08/06/2024 12:37:06 PM Interpretation: Performing Lab:[facility], [address] [place] [phone] Notes/Report: Sodium 143 135-145 mmol/L Potassium 3.9 [...] Panel Reviewed date:08/06/2024 12:36:44 PM Interpretation: Performing Lab:[address] [phone] Notes/Report: Triglycerides 110 <150 mg/dL Desirable Triglyceride: [...] Total Reviewed date:08/06/2024 12:36:51 PM Interpretation: Performing Lab:[address] [phone] Notes/Report: Vitamin D 25-OH Total 62.6 >30 [...] Random Reviewed date:08/06/2024 12:36:37 PM Interpretation: Performing Lab:[address] [phone] Notes/Report: Creatinine Urine 106.39 Microalbumin Urine 16.0 Microalbum/Creatinine Ratio Ur 15.0 <30 ug/mg cr Albumin/Creatinine Ratio Reference Ranges: Normal: < 30 ug/mg creatinine Microalbuminuria: 30 - 300 ug/mg creatinine Clinical Albuminuria: > 300 ug/mg creatinine Hemoglobin A1c Reviewed date:08/06/2024 12:36:27 PM Interpretation: Performing Lab:[address] [phone] Notes/Report: Hemoglobin A1c % 6.5 <6.0 % [...] average glucose, using the formula of the P0R-Wgkszrp Average Glucose study (ADAG), Diabetes Care, Vol.31,#8, Dec. 2007 UA ClnCatch+Micro w/rflx Cul t Reviewed date:08/06/2024 05:10:42 PM Interpretation: Performing Lab:[address] [phone] Notes/Report: Urine, Clean Catch Color Urine Yellow Appearance Urine Clear PH 6.5 5.0-9.0 Glucose Urine UA Negative Negative mg/dL Urine Blood Negative Negative Specific Purcell - Urine 1.020 1.005-1.025 Urine Protein Negative Neg-Trace mg/dL Urine Ketones Negative Negative mg/dL Nitrite Urine Negative Negative Leukocyte Esterase Urine Small (1+) Negative RBC Urine 0-2 0-2 /HPF WBC Urine 11-20 0-5 /HPF Squamous Epithelial Cell Urine 0-2 0-2 /HPF Bacteria Urine None Seen None Seen Hyaline Casts Urine 0-2 0-2 /LPF Lipid Panel (Not yet reviewe d by provider) Interpretation: Performing Lab:[facility], [address] [place] [phone] Notes/Report: Triglycerides 63 <150 mg/dL Desirable Triglyceride: [...] low results in patients with liver disease. Glucose, finger stick Reviewed date:02/09/2024 02:14:14 PM Interpretation: Performing Lab: Notes/Report: Value 110 XR DEXA axial skeleton Reviewed date:08/16/2024 12:47:51 PM Interpretation:SHANAECK 08/13 BONE DENSITY Performing Lab: Notes/Report: [facility]'s [address] [place] [address] Mammography Report Signed Patient: aCrmelo Amos MR#: [id number] : 1955 Acct:[id number] Age/Sex: 68 / F ADM Date: 03/09/24 Loc: QUINN Attending Dr: Yamil Singh MD Ordering Physician: Yamil Singh MD Results: Date of Service: 03/09/24 Follow Up: Procedure(s): XR DEXA axial skeleton Accession Number(s): [id number] cc: Yamil Singh MD EXAMINATION: BONE DENSITOMETRY CLINICAL INDICATION: Age-related osteoporosis without current pathological fracture. COMPARISON: Previous BD dated 01/08/2022 and baseline BD dated 09/03/2015. TECHNIQUE: Using a [employer] DXA System (software version: 13.1) manufactured by [employer], dual-energy x-ray absorptiometry was performed of the lumbar spine and left hip. The images are of good technical quality. Summary results are attached. FINDINGS: AP SPINE L1-L4: Current: BMD 0.969 g/cm2, Z-score -0.1, T-score -1.8, osteopenia, 1.4% increase from previous, 0.2% increase from baseline (<5% change is not significant). Prior: BMD 0.956 g/cm2. Baseline: BMD 0.967 g/cm2. LEFT FEMUR, NECK: Current: BMD 0.722 g/cm2, Z-score -0.6, T-score -2.3, osteopenia. Prior: BMD 0.697 g/cm2. Baseline: BMD 0.734 g/cm2. LEFT FEMUR, TOTAL: Current: BMD 0.739 g/cm2, Z-score -0.7, T-score -2.1, osteopenia, 4.0% decrease from previous, 8.4% decrease from baseline (<5% change is not significant). Prior: BMD 0.770 g/cm2. Baseline: BMD 0.807 g/cm2. IDENTIFIED RISK FACTORS: Parental hip fracture. Menopause. HISTORY OF FRACTURE: None listed. MEDICATIONS: Calcium supplement and/or multivitamin. Vitamin D. MM/XR DEXA axial skeleton IMPRESSION: 1. DIAGNOSIS: Osteopenia based on the lowest T-score value of -2.3 in the femoral neck applying World Health Organization criteria. 2. 10-YEAR FRACTURE RISK PREDICTION, FRAX: Major osteoporotic fracture (clinical spine, forearm, hip or shoulder) 12.4%. Hip fracture 3.5%. 3. Treatment Recommendations: NOF guidelines recommend consideration for treatment in postmenopausal women and men age 50 and older presenting with the following: -A hip or vertebral (clinical or morphometric) fracture. -T-score less than or equal to -2.5 at the femoral neck or spine after appropriate evaluation to exclude secondary causes. -Low bone mass at the hip or spine and a 10-year fracture probability by FRAX of greater than or equal to 3% for hip fracture or greater than or equal to 20% for major osteoporotic fracture based on the [place] adapted WHO algorithm. 4. Other Recommendations: All treatment decisions require clinical judgment and consideration of individual patient factors, including patient preferences, comorbidities, previous drug use, risk factors not captured in the FRAX model (e.g. frailty, falls, vitamin D deficiency, increased bone turnover, interval significant decline in bone density) and possible under or overestimation of fracture risk by FRAX. Additional medical evaluation for secondary cause of low bone mineral density may be appropriate. FUTURE SCAN RECOMMENDATION: People with diagnosed cases of osteoporosis or at high risk for fracture should have regular bone mineral density tests. For patients eligible for Medicare, routine testing is allowed once every 2 years. The testing frequency can be increased to one year for patients who have rapidly progressing disease, those who are receiving or discontinuing medical therapy to restore bone mass, or have additional risk factors. Electronically signed by: Eros Rizvi MD 03/12/2024 02:40 PM EDT Dictated By: Eros iRzvi MD Signed By: <Electronically signed by Eros Rizvi MD in OV> 03/12/24 1440 DD/ 1100 TD/TT: 03/09/24 1120 Traffic Reporter: TERE Guevara [facility] [address] [place] [address] Mammography Report Signed Patient: Carmelo Amos MR#: [id number] : 1955 Acct:[id number] Age/Sex: 68 / F ADM Date: 03/09/24 Loc: HO.MAMMO Attending Dr: Yamil Singh MD Ordering Physician: Yamil Singh MD Results: Date of Service: 03/09/24 Follow Up: Procedure(s): XR DEX A axial skeleton Accession Number(s): [id number] cc: Yamil Singh MD EXAMINATION: BONE DENSITOMETRY CLINICAL INDICATION: Age-related osteoporosis without current pathological fracture. COMPARISON: Previous BD dated 01/08/2022 and baseline BD dated 09/03/2015. TECHNIQUE: Using a [employer] DXA System (software version: 13.1) manufactured by [employer], dual-energy x-ray absorptiometry was performed of the lum bar spine and left hip. The images are of good technical quality. Summary results are attached. FINDINGS: AP SPINE L1-L4: Current: BMD 0.969 g/cm2, Z-score -0.1, T-score -1.8, osteopenia, 1.4% increase from previo us, 0.2% increase from baseline (<5% change is not significant). Prior: BMD 0.956 g/cm2. Baseline: BMD 0.967 g/cm2. LEFT FEMUR, NECK: Current: BMD 0.722 g/cm2, Z-score -0.6, T-score -2.3, osteopenia. Prior: BMD 0.697 g/cm2. Baseline: BMD 0.734 g/cm2. LEFT FEMUR, TOTAL: Current: BMD 0.739 g/cm2, Z-score -0.7, T-score -2.1, osteopenia, 4.0% decrease from previo us, 8.4% decrease from baseline (<5% change is not significant). Prior: BMD 0.770 g/cm2. Baseline: BMD 0.807 g/cm2. IDENTIFIED RISK FACTORS: Parental hip fractur e. Menopause. HISTORY OF FRACTURE: None listed. MEDICATIONS: Calcium supplement and/or multivitamin. Vitamin D. MM/XR DEXA axial skeleton IMPRESSION: 1. DIAGNOSIS: Osteopenia based on the lowest T-score value of -2.3 in the femoral neck applying World Health Organization criteria. 2. 10-YEAR FRACTURE RISK PREDICTION, FRAX: Major osteoporotic fracture (clinical spine, forearm, hip or shoulder) 12.4%. Hip fracture 3.5%. 3. Treatment Recommendations: NOF guidelines recommend consideration for treatment in postmenopausal women and men age 50 and older presenting with the following: -A hip or vertebral (clinical or morphometric) fracture. -T-score less than o r equal to -2.5 at the femoral neck or spine after appropriate evaluati on to exclude secondary causes. -Low bone mass at th e hip or spine and a 10-year fracture probability by FRAX of greater t leslie or equal to 3% for hip fracture or greater than or equal to 20% for major osteoporotic fracture based on the [place] adapted WHO algorithm. 4. Other Recommendations: All treatment decisions require clinical judgment and consideration of individual patient factors, including patient preferences, comorbidities, previous drug use, risk factors not captured in the FRAX model (e.g. frailty, falls, vitamin D deficiency, increased bone turnover, interval significant decline in bone density) and possible under o r overestimation of fracture risk by FRAX. Additional medical evaluation for secondary cause of low bone mineral density may be appropriate. FUTURE SCAN RECOMMENDATION: People with diagnose d cases of osteoporosis or at high risk for fracture should have regular bone mineral density tests. For patients eligible for Medicar e, routine testing is allowed once every 2 years. The testing frequenc y can be increased to one year for patients who have rapidly progressing disease, those who are receiving or discontinuing medica l therapy to restore bone mass, or have additional risk factors. Electronically chiquis d by: Eros Rizvi MD 03/12/2024 02:40 PM EDT RP Dictated By: Eros Rizvi MD Signed By: <Electronically signed by Eros Rizvi MD in OV> 03/12/24 1440 DD/ 1100 TD/TT: 03/09/24 1120 Traffic Reporter: TERE Collins Reviewed date:08/06/2024 12:33:46 PM Interpretation: Performing Lab:[facility], [address] [place] [phone] Notes/Report: Juliette Collins See Note Specimen held untested for 24 hours; Call to request Chemistry testing. Urine Culture Reviewed date:08/07/2024 12:22:41 PM Interpretation: Performing Lab:[facility], [address] [place] [phone] Notes/Report: Urine Culture No growth. MM tomosynthesis screening B I Reviewed date:08/17/2024 12:10:23 PM Interpretation: Performing Lab: Notes/Report: [facility] [address] [place] [id number] Mammography Report Signed Patient: Carmelo Amos MR#: [id number] : 1955 Acct:[id number] Age/Sex: 69 / F ADM Date: 08/08/24 Loc: JAQUIO Attending Dr: Yamil Singh MD Ordering Physician: Yamil Singh MD Results: 2Be nigsudarshan Findings Date of Service: 08/08/24 Follow Up: 1 Year From Orig inal Mammogram Procedure(s): MM tomosynthesis screening BI Accession Number(s): [id number] cc: Yamil Singh MD EXAMINATION: MM SCREENING DIGITAL BREAST TOMOSYNTHESIS, BILATERAL CLINICAL INFORMATION: Screening. Asymptomatic. COMPARISON: Mammography: Comparison is made with available priors TECHNIQUE: Digital breast mammography with tomosynthesis is performed in both the craniocaudal and mediolateral oblique views along with computer-aided detection (CAD). FINDINGS: The breasts are heterogeneously dense, which may obscure small masses (ACR BI-RADS breast composition Category c). Right breast post surgical changes of excisional biopsy. There are no significant masses, abnormal calcifications, or other abnormalities. MM/MM tomosynthesis screening BI IMPRESSION: No mammographic evidence of malignancy. ASSESSMENT: BI-RADS BI-RADS 2 - Benign Findings RECOMMENDATION: Routine annual mammography screening. 1 year F/U This examination should not preclude the clinical evaluation of a suspicious palpable abnormality. This patient's information was entered into a reminder system with a target due date for their next mammogram. Electronically signed by: Suzan Osorio DO 08/14/2024 02:01 PM EDT Dictated By: Suzan Osorio DO Signed By: <Electronically signed by Suzan Osorio DO in OV> 08/14/24 1401 DD/ 0830 TD/TT: 08/08/24 0845 Traffic Reporter: [facility] [address] [place] [address] Mammography Report Signed Patient: Carmelo Amos MR# : [id number] : 1955 Acct:[id number] Age/Sex: 69 / F ADM Date: 08/08/24 Loc: HO.MAMMO Attending Dr: Yamil Singh MD Ordering Physician: Yamil Singh MD Results: 2Be nign Findings Date of Service: 08/08/24 Follow Up: 1 Year From Orig inal Mammogram Procedure(s): MM tomosynthesis screening BI Accession Number(s): [id number] cc: Yamil Singh MD EXAMINATION: MM SCREENING DIGITAL BREAST TOMOSYNTHESIS, BILATERAL CLINICAL INFORMATION: Screening. Asymptomatic. COMPARISON: Mammography: Compari son is made with available priors TECHNIQUE: Digital breast mammography with tomosynthesis is performed in both the craniocaudal and mediolateral oblique views along with computer-aided detection (CAD). FINDINGS: The breasts are heterogeneously dense, which may obscure small masses (ACR BI-RADS breast composition Category c). Right breast post surgical changes of excisional biopsy. There are no significant masses, abnormal calcifications, or other abnormalities. MM/MM tomosynthesis screening BI IMPRESSION: No mammographic evidence of malignancy. ASSESSMENT: BI-RADS BI-RADS 2 - Benign Findings RECOMMENDATION: Routine annual mammography screening. 1 year F/U This examination donna uld not preclude the clinical evaluation of a suspicious palpable abnormality. This patient's information was entered into a reminder system with a target due date for their next mammogram. Electronically chiquis d by: Suzan Osorio DO 08/14/2024 02:01 PM EDT Dictated By: Suzan Osorio DO Signed By: <Electronically signed by Suzan Osorio DO in OV> 08/14/24 1401 DD/ 0830 TD/TT: 08/08/24 0845 Traffic Reporter: Reason For Referral No Information Medications Medication SIG (Take, Route, Frequency, Duration) Notes Start Date End Date Status Calcipotriene 0.005 % 1 application Externally Twice a day Not-Takjerald hernández Citalopram Hydrobromide 20 MG 1 tablet Orally Once a day for 90 days 09/30/2016 Not-Taking Doxycycline Monohydrate 100 MG 1 capsule Orally Once a day for 10 day(s) Not-Taking Tacrolimus 0.1 % 1 application Externally Once a day Not-Taking Sertraline HCl 25 MG TAKE 1 TABLET BY [facility] EVERY DAY Active Triamcinolone Acetonide 0.5 % 1 application Externally Two times a Week for 14 days 02/09/2024 Active Vitamin D 25 MCG (1000 UT) 1 tablet Orally Once a day Active Claritin 10 MG 1 capsule Orally Onc e a day for 30 day(s) Active Triamcinolone Acetonide 0.5 % 1 application to affected area Externally Twice a day for 30 Not-Taking Omeprazole 40 MG TAKE 1 CAPSULE BY [facility] EVERY DAY Active Calcium 500 MG 1 tablet with meals Orally Twice a day Active Diprolene AF 0.05 % 1 application to affected area Externally Once a day for 14 days 02/12/2016 Not-Taking Citalopram Hydrobromide 20 MG 1 tablet Orally Once a day for 30 day(s) 05/14/2019 Not-Taking Immunizations Vaccine Route Administration Date Status Comme nts Flu Vaccine IM Intramuscular 02/08/2012 Administered Flu Vaccine Unknown 05/26/2013 Administered [facility] Flu Vaccine IM Intramuscular 03/18/2014 Administered Flu Vaccine Unknown 04/29/2015 Administered [facility] Fluarix Quadrivalent IM Intramuscular 02/12/2016 Administe red Flu Vaccine Unknown 04/18/2017 Administered given at [facility] PPSV23 (Pnemovax) IM Intramuscular 10/20/2017 Administered Fluarix Quadrivalent Unknown 03/04/2019 Administered aceves d at [facility] Influenza High Dose IM Intramuscular 01/25/2020 Administer ed Covid Vaccine Unknown 07/18/2020 Administered Moderna C VS Covid Vaccine Unknown 08/15/2020 Administered Moderna Covid Vaccine Unknown 07/18/2020 Administered moderna Influenza High Dose Unknown 03/01/2021 Administered [facility] Fluarix Quadrivalent IM Intramuscular 03/15/2023 Administe red Shingrix Unknown 10/13/2023 Administered Shingrix Unknown 12/27/2023 Administered [facility] Social History Tobacco Use: Social History Observation [...] ast year? No Points 0 Interpretation Negative Problems Problem Type SNOMED Code ICD Code Onset Dates Problem Status W/U Status Risk Notes Problem Malignant tumor of pancreas (642074023) Pancreatic malignant neoplasm (157.9) Active confirmed Problem 24996845 Age-related osteoporosis without current pathological fracture (M81.0) Active confirmed Problem 27993583 Lymphocytosis (D72.820) Active confirmed Problem 449053502 Tubular adenoma (D36.9) Active confirmed Problem 014535874 Reflux esophagitis (K21.00) Active confirmed Problem 01341610 Vitamin D deficiency (E55.9) Active confirmed Problem 72959269 Anxiety (F41.9) Active confirmed Problem 04404036 Adjustment disorder with depressed mood (F43.21) Active confirmed Problem New daily persistent headache (647510123317623) New daily persistent headache (G44.52) Active confirmed Problem 79503160 Dysthymia (F34.1) Active confirmed Problem Pure hypercholesterolemia (018896273) Elevated LDL cholesterol level (E78.00) Active confirmed Problem 220849042 Imbalance (R26.89) Active confirmed Problem 364309468 Type 2 diabetes mellitus without complication, without long-term current use of insulin (E11.9) Active confirmed Problem 376429989 Insomnia, unspecified type (G47.00) Active confirmed Problem 358258732 Liver lesion (K76.9) Active confirmed Problem Eosinophil count abo ve reference range (finding) (076410950) Eosinophilia, unspecified (D72.10) Active confirmed Vital Signs Blood pressure diastolic 60 mm Hg 08/13/2024 Height 65 in 08/13/2024 Blood pressure systolic 112 mm Hg 08/13/2024 Weight 139 lbs 08/13/2024 BMI 23.13 kg/m2 08/13/2024 Encounters Encounter Location Date Provider Diagnosis Yamil Singh MD [address] [place] [address] Drive [address] [place] [id number] 08/06/2024 Yamil Singh Blood tests for routine general physical examination Z00.00 ; Type 2 diabetes mellitus without complication, without long-term current use of insulin E11.9 ; Vitamin D deficiency E55.9 and Lymphocytosis D72.820 Yamil Singh MD [address] [place] [address] Drive [address] [place] [id number] 02/08/2025 Yamil Singh Elevated LDL cholesterol level E78.00 Yamil Singh MD [address] [place] [address] Drive [address] [place] [id number] 02/09/2024 Yamil Singh Type 2 diabetes mellitus without complication, without long-term current use of insulin E11.9 ; Vitamin D deficiency E55.9 and Chronic eczema L30.9 Yamil Singh MD [address] [place] [address] [address] [place] [id number] 08/13/2024 Yamil Singh Age-related osteoporosis without current pathological fracture M81.0 ; Pancreatic malignant neoplasm 157.9 ; Neuroendocrine tumor D3A.8 ; Type 2 diabetes mellitus without complication, without long-term current use of insulin E11.9 ; Dysthymia F34.1 ; Reflux esophagitis K21.00 and Depression screening Z13.31 Yamil Singh MD [address] [place] [address] Drive [address] [place], [place] [id number] 02/20/2024 Yamil Singh Age-related osteoporosis without current pathological fracture M81.0 Assessments Encounter Date Diagnosis (ICD Code) Assessment Notes Treatment Notes Treatment Clinical Notes Section Notes 08/06/2024 Blood tests for routine general physical examination (ICD-10 - Z00.00) 02/08/2025 Elevated LDL cholesterol level (ICD-10 - E78.00) 02/09/2024 Type 2 diabetes mellitus without complication, without long-term current use of insulin (ICD-10 - E11.9) still with good a1c, no need for medication at this time 02/09/2024 Vitamin D deficiency (ICD-10 - E55.9) pending diagnostic testing 08/13/2024 Age-related osteoporosis without current pathological fracture (ICD-10 - M81.0) is just a little worse. will recheck in one year/ order for bone desity printed and put on future folder 08/13/2024 Pancreatic malignant neoplasm (ICD9-CM - 157.9) 08/06/2024 Type 2 diabetes mellitus without complication, without long-term current use of insulin (ICD-10 - E11.9) 02/09/2024 Chronic eczema (ICD-10 - L30.9) patient verbalized understanding of medication and directions for use 08/13/2024 Neuroendocrine tumor (ICD-10 - D3A.8) followed at [facility]/ need records from [facility] [place] from last visit dr garrido in oncology 02/20/2024 Age-related osteoporosis without current pathological fracture (ICD-10 - M81.0) 08/06/2024 Vitamin D deficiency (ICD-10 - E55.9) 08/13/2024 Type 2 diabetes mellitus without complication, without long-term current use of insulin (ICD-10 - E11.9) stable, will continue to monitor 08/06/2024 Lymphocytosis (ICD-10 - D72.820) 08/13/2024 Dysthymia (ICD-10 - F34.1) stable, doing well, will continue current regiment 08/13/2024 Reflux esophagitis (ICD-10 - K21.00) stable, will continue current regiment 08/13/2024 Depression screening (ICD-10 - Z13.31) negative screen 08/13/2024 Other need mammo from [facility] last week Plan Of Treatment Pending Test Test Name Order Date Electrocardiogram (EKG) 08/14/2015 Electrocardiogram (EKG) 09/30/2016 Electrocardiogram (EKG) 10/20/2017 XR SACROILIAC JOINTS 1 TO 2 VIEWS 2011 BONE DENSITY DEXA 02/17/2021 BONE DENSITY DEXA 02/09/2024 BONE DENSITY DEXA 02/20/2024 MAMMOGRAM DIGITAL BILATERAL SCREEN 12/09 Lipid Panel 02/08/2025 Future Test Test Name Order Date MAMMOGRAM DIGITAL BILATERAL SCREEN 05/20 Next Appt Details Provider Name:Yamilsudarshan Brown ier, 02/12/2025 02:15:00 PM, [address] [place] [address], [address], [phone], Provider Name:Yamil Brown ier, 09/05/2025 07:15:00 AM, [address] [place] [address], [place] [address], [place], [place], [phone], Provider Name:Yamilsudarshan Brown ier, 09/12/2025 02:30:00 PM, [address] [place] [address], [address], [phone], Insurance Providers Payer Name Payer Address Payer Phone Subscriber Number Group Number Insured Name Patient Relationship to Insured Coverage Start Date Coverage End Date MEDICARE NHIC DANA [address] [place] [address] [id number] Carmelo Amos Self - patient is the insured 0 [employer] [address] [place], [place] [id number] Carmelo Amos Self - patient is the insured 0 Medical (General) History Medical History History ICD Code colonoscopy 2005 due in 10 y ears; colonoscopy 11/25/14 - repeat [address] [place], due 11/2019: colonoscopy 01/06/22 repeat 5-7 years sees [facility] in [place] Surgical History Surgery Date(Month/Year) NEUROENDOCRINE TUMOR OF LIVER 2005
--- OUTSIDE RECORDS SUMMARY | 2025-02-08 12:08 | XMS_ITS | Clinical Summary ---
Author Organization [facility] Address [address] [place] [address] Phone Care Team Providers Care Supreme Court Judge Name Role Phone Yamil Singh MD Primary Care Provider Allergies No known active allergies Active Problems Problem Noted Date Diagnosed Date Neuroendocrine carcinoma metastatic to liver Assessment & Plan (10/24/2024 11:46 AM EDT): I had a long chat through an site interpreter with Ms Rhodes about the pros and cons of starting lanreotide. Given that she feels great, we ended up holding off on starting any therapy. We did agree to follow her tumor closely and will get another MRI in three months to assess growth. I'm less worried about the liver mets than I am about the peritoneal mets. She understands this. The thoracic mri was reassuring in not seeing any lesions. We also talked about her GERD. I recommended tapering off omeprazole but also using H2 blockers BID while doing so given her longstanding use. If she has difficulty doing this, we should consider another EGD to make sure that there is no significant GE pathology. Assessment & Plan (08/13/2024 3:30 PM EDT): I'm worried that her disease is starting to get worse and her symptoms of fatigue are related to that. I explained in detail the scan findings and recommended that she start on lanreotide. I would like to see her every 3m to keep closer tabs on her. Her daughters were on the zoom with us and explained that this is difficult given her language issues and her minimal social support. Her sister lives in this same town as she does but her daughters live far away. We had a long discussion regarding the uncertainty of these tumors but that I thought that it was time to start lanreotide. They will decide where they want to get this and let me know. The T8 vertebral body uptake doesn't have a ct correlate. Will get mri to evaluate. Assessment & Plan (01/19/2024 8:31 AM EDT): Ms Rhodes still has very slow growing disease. Her segment 5 lesion has grown about 4mm over 2 years. She still feels great. I explained that she likely has very slow growing disease and it's not clear if she will from this cancer or with this cancer. Therefore, I think it's very reasonable to continue with observation. We will get another MRI in 6m and also pair this with another dotatate pet. She knows to call me if anything changes. She and her daughters understood the plan and are in agreement. Assessment & Plan (07/29/2023 4:16 PM EDT): Doing overall well with stable disease by mri. She is somewhat tired but recently diagnosed with uti. She will let me know how she feels after the abx. Given the stable disease, I recommended continuing watchful waiting with mri's every 6m. The segment 7/8 lesion was present in 2004 and has not changed much. It was previously characterized as a benign lesion although I don't have biopsy documentation. It was not dotatate avid like her other lesions. Assessment & Plan (01/11/2023 12:43 PM EDT): Given her lack of symptoms and minimal growth in the segment 5 lesion, I think we can still hold off on the SSA. We will get mri in 6 months to reevaluate. If anything happens in the interim, they know to call me. Assessment & Plan (09/28/2022 6:32 PM EDT): I reviewed the diagnosis, prognosis, and mgmt of neuroendocrine carcinoma in detail. I explained that this is not a curable cancer. Given that she has a very slow growing cancer over 18 years and has no symptoms, we talked about the pros and cons of starting lanreotide. It will likely slow the growth of her cancer but she will essentially be on it lifelong. We could also wait until she develops or is about to develop symptoms. We talked about the various treatment options including lutathera. For now, I would at most start lanreotide and then get scans every 6 months. Social History Tobacco Use Types Packs/Day Years [...] Sign Reading Time Taken Comments Blood Pressure 129/83 10/23/2024 9:31 AM EDT Pulse 65 10/23/2024 9:31 AM EDT Temperature 35.6 C (96 F) 10/23/2024 9:31 AM EDT Respiratory Rate 16 10/23/2024 9:31 AM EDT Oxygen Saturation 98% 10/23/2024 9:31 AM EDT Inhaled Oxygen Concentration - - Weight 63.8 kg (140 lb 9.6 oz) 10/23/2024 9:31 A M EDT Height 162.6 cm (5' 4 ) 07/31/2024 1:00 PM EDT Body Mass Index 24.13 07/31/2024 1:00 PM EDT Plan of Treatment Upcoming Encounters Date Type Department Care Team (Late st Contact Info) Description 10/23/2024 Procedure Pass MRI, [facility] - [address], [address] [place], [place] [id number] 02/27/2025 11:30 AM EDT Blood Draw [address] [place] [address] Silvio Spear MD [address] [place] [address] [email or web address] 03/05/2025 1:30 PM EDT Telemedicine [facility] [address] [facility], 7th [address], [address] [place] [address] Silvio Spear MD [address] [facility] [address] [place] [address] [email or web address] Kaylin Dorado CNP [address] [facility] [address] [place] [address] [email or web address] 04/12/2025 12:30 PM EST Appointment MRI, [facility] - [address], [address] [place] [address] Silvio Spear MD [address] [facility] [address] [place] [address] [email or web address] Health Maintenance Due Date Last Done Comments LIPID PANEL 1954 DEPRESSION SCREENING 1966 SMOKING Hx and SMOKELESS TOBACCO SCREENING 1967 HEPATITIS C SCREENING 1972 HEPATITIS A VACCINES (1 of 2 - Risk 2-dose series) 1973 MAMMOGRAM 1994 COLOGUARD 1999 COLONOSCOPY 1999 COLORECTAL CANCER SCREENING 1999 FIT TEST 1999 FOBT 1999 SIGMOIDOSCOPY 1999 VIRTUAL COLONOSCOPY 1999 RSV VACCINE (1 - Risk 60-74 years 1-dose series) 2014 PNEUMOCOCCAL VACCINES (50+ years) (2 of 2 - PCV) 10/20/2018 10/20/2017 OSTEOPOROSIS SCREENING INITIAL (ONE-TIME) 2019 INFLUENZA VACCINE (#1) 2024 3, 03/01/2021, 01/25/2020, Additional history exists COVID-19 VACCINE (3 - season) 2025 08/15/2020, 07/18/2020 Adult Td,Tdap Booster 10/04/2025 10/05/2015 ZOSTER VACCINES Completed 12/27/2023, 10/13/2023 HIB VACCINES Aged Out No longer eligi ble based on patient's age to complete this topic MENINGOCOCCAL VACCINES (ACWY) Aged Out No longer eligible based on patient's age to complete this topic MENINGOCOCCAL VACCINES (B) Aged Out N o longer eligible based on patient's age to complete this topic Medical Devices Not on file [place] [id number] [facility] MEDEX SUPPLEMENT MEDICARE PART A & B Member Subscriber Plan / Payer (Ef fective 2019-Present) Name:Carmelo Amos Member ID:[id number] Relation to Subscriber:Self Name:Carmelo Amos Subscriber ID:[id number] Payer ID:[id number] Group ID:Not on file Type:Medicare Address: [employer] [address] [place] [phone] [employer] MEDEX SUPPLEMENT MEDICARE PART A & B [employer] CROSS MEDEX SUPPLEMENT MEDICARE PART A & B [employer] CROSS MEDEX SUPPLEMENT MEDICARE PART A & B [employer] MEDEX SUPPLEMENT MEDICARE PART A & B [employer] CROSS MEDEX SUPPLEMENT Care Teams Supreme Court Judge Relationship Specialty Start Date End Date Yamil Singh MD [address] [place] [address] [place] [address] PCP - General Internal Medicine 5/8/23 Additional Source Comments The information contained in this document represents components of the legal health record. It is not the complete legal health record.[facility]
--- OUTSIDE RECORDS SUMMARY | 2025-02-08 12:08 | XMS_ITS | Encounter Summary ---
Author Organization [facility] Address [address] [place] [address] Phone Care Team Providers Care Die Out Worker Name Role Phone Yamil Singh MD Primary Care Provider Encounter Details Date Type Department Care Team (Late st Contact Info) Description 07/30/2024 Procedure Pass [facility] - Pet Scan, [facility] [address] [place] [address] Social History Tobacco Use Types Packs/Day Years [...] Contact Info) Description 10/23/2024 Procedure Pass MRI, [facility] [place] [address] [facility], [address] [place] [address] 02/27/2025 11:30 AM EDT Blood Draw [facility] [address] [facility] [address] [place] [address] Silvio Spear MD [address] [place] [address] [email or web address] 03/05/2025 1:30 PM EDT Telemedicine [facility] [address] [facility], 7th Floor, [address] [place] [address] Silvio Spear MD [address] [facility] [address] [place] [address] [email or web address] Kaylin Dorado, LEÓN [address] [facility] [address] [place] [address] [email or web address] 04/12/2025 12:30 PM EST Appointment MRI, [facility] - [address], [address] [place] [address] Silvio Spear MD [address] [facility] [address] [place] [address] [email or web address] documented as of this encounter Visit Diagnoses Not on filedocumented in this encounter Care Teams Die Out Worker Relationship Specialty Start Date End Date Yamil Singh MD [address] [place] [address] [place] [address] PCP - General Internal Medicine 09/20/22 documented as of this encounter Additional Source Comments The information contained in this document represents components of the legal health record. It is not the complete legal health record.[facility]
--- OUTSIDE RECORDS SUMMARY | 2025-02-08 12:09 | XMS_ITS | Encounter Summary ---
Author Organization [facility] Address [address] [place] [address] Phone Care Team Providers Care Supervisor Waterproofing Name Role Phone Yamil Singh MD Primary Care Provider Encounter Details Date Type Department Care Team (Late st Contact Info) Description 07/29/2023 Procedure Pass MRI, [facility] - [address], [address] [place] [address] Social History Tobacco Use Types Packs/Day Years [...] Contact Info) Description 10/23/2024 Procedure Pass MRI, [facility] [place] [address] [facility], [address] [place] [address] 02/27/2025 11:30 AM EDT Blood Draw [address] [place] [address] Silvio Spear MD [address] [place] [address] [email or web address] 03/05/2025 1:30 PM EDT Telemedicine [facility] [address] [facility], 7th Floor, [address] [place] [address] Silvio Spear MD [address] [facility] [address] [place] [address] [email or web address] Kaylin Dorado, LEÓN [address] [facility] [address] [place] [address] [email or web address] 04/12/2025 12:30 PM EST Appointment MRI, [facility] - [address], [address] [place] [address] Silvio Spear MD [address] [facility] [address] [place] [address] [email or web address] documented as of this encounter Visit Diagnoses Not on filedocumented in this encounter Care Teams Supervisor Waterproofing Relationship Specialty Start Date End Date Yamil Singh MD [address] [place] [address] [place] [address] PCP - General Internal Medicine 09/20/22 documented as of this encounter Additional Source Comments The information contained in this document represents components of the legal health record. It is not the complete legal health record.[facility]
--- OUTSIDE RECORDS SUMMARY | 2025-02-08 12:09 | XMS_ITS | Encounter Summary ---
Author Organization [facility] Address [address] [facility] [address] [place] [address] Phone Care Team Providers Care Animal Handler Name Role Phone Yamil Singh MD Primary Care Provider Encounter Details Date Type Department Care Team (Late st Contact Info) Description 01/05/2023 Procedure Pass MRI, [facility] - [address], [address] [place] [address] Social History Tobacco Use Types Packs/Day Years [...] Contact Info) Description 10/23/2024 Procedure Pass MRI, [facility] [place] [address] [facility], [address] [place] [address] 02/27/2025 11:30 AM EDT Blood Draw [address] [place] [address] Silvio Spear MD [address] [place] [address] [email or web address] 03/05/2025 1:30 PM EDT Telemedicine [facility] [address] [facility], 7th Floor, [address] [place] [address] Silvio Spear MD [address] [facility] [address] [place] [address] [email or web address] Kaylni Dorado, LEÓN [address] [facility] [address] [place] [address] [email or web address] 04/12/2025 12:30 PM EST Appointment MRI, [facility] - [address], [address] [place] [address] Silvio Spear MD [address] [facility] [address] [place] [address] [email or web address] documented as of this encounter Visit Diagnoses Not on filedocumented in this encounter Care Teams Animal Handler Relationship Specialty Start Date End Date Yamil Singh MD [address] [place] [address] [place] [address] PCP - General Internal Medicine 09/20/22 documented as of this encounter Additional Source Comments The information contained in this document represents components of the legal health record. It is not the complete legal health record.[facility]
--- OUTSIDE RECORDS SUMMARY | 2025-02-08 12:09 | XMS_ITS | Clinical Summary ---
Author Organization [address] Address [address] [place] [id number] Care Team Providers Care Flight Communications Specialist Name Role Phone No, Pcp (Do Not [...] fever cause 05/25/2024 Acute viral syndrome 05/25/2024 Social History Tobacco Use Types Packs/Day Years [...] 88 05/25/2024 10:03 AM EST Temperature 36.9 C (98.4 F) 05/25/2024 10:03 AM EST Respiratory Rate 18 05/25/2024 10:03 AM EST [...] cancer screening, Colonoscopy 1999 Diabetes screening 1999 Pneumococcal Vaccine (50+ ye ars) (1 of 1 - PCV) 2004 Shingles vaccine (Shingrix) (1 of 2 - Shingrix (RZV) 2 Dose Standard Series) 2004 Osteoporosis screening (bone density) 2019 Influenza vaccine 12/14/2024 Covid-19 vaccine series ( season) 2025 Tetanus adult (Td q 10,TDAP once) 10/04/2025 016 RSV Immunization (1 - 1-dose 75+ series) 2029 Cervical cancer screening Discontinued Meningococcal B Vaccine Aged Out No l onger eligible based on patient's age to complete this topic Meningococcal Vaccine Aged Out No belkis tyra eligible based on patient's age to complete this topic Insurance MEDICARE [facility] MEDICARE [facility] MEDICARE [facility] Care Teams Flight Communications Specialist Relationship Specialty Start Date End Date No, Pcp (Do Not Change Name) PCP - General 05/09/24
--- OUTSIDE RECORDS SUMMARY | 2025-02-08 12:09 | XMS_ITS ---
Author Name [facility] Organization Unknown History of Medication Use Medication Directions Dispensed Refills Start Date End Date Stat us nitrofurantoin, macrocrystal-monohy drate, (MACROBID) 100 mg capsule Take 1 capsule (100 mg total) by mouth every 12 (twelve) hours for 7 days. 05/09/2024 05/17/2024 active Problems Problem Status Onset Date Problem Type Date of Resoluti on Source Fever, unspecified fever cause active 2024-05-25 [facility] Acute viral syndrome active 2024-05-25 ProblemAct [facility] Encounters Encounter Type Encounter Reason Primary Diagnosis Location Date Ambulatory Fever, unspecified Fever, unspecified Yal e [facility] 05/25/2024 Ambulatory Acute cystitis Acute cystitis [facility] 05/09/2024 Care Team Organization Name Specialty Phone Email Start Date End [facility] 05/09/2024
--- OUTSIDE RECORDS SUMMARY | 2025-02-08 12:09 | XMS_ITS | Encounter Summary ---
Author Organization [facility] Address [address] [facility] [address] [facility] [address] [place] [address] Phone Care Team Providers Care Combat Systems Officer Name Role Phone Yamil Singh MD Primary Care Provider Encounter Details Date Type Department Care Team (Late st Contact Info) Description 01/11/2023 Procedure Pass MRI, [facility] - [address], [address] [place] [address] Social History Tobacco Use Types Packs/Day Years [...] Contact Info) Description 10/23/2024 Procedure Pass MRI, [facility] [place] [address] [facility], [address] [place] [address] 02/27/2025 11:30 AM EDT Blood Draw [address] [place] [address] Silvio Spear MD [address] [place] [address] [email or web address] 03/05/2025 1:30 PM EDT Telemedicine [facility] [address] [facility], 7th Floor, [address] [place] [address] Silvio Spear MD [address] [facility] [address] [place] [address] [email or web address] Kaylin Dorado, LEÓN [address] [facility] [address] [place] [address] [email or web address] g 04/12/2025 12:30 PM EST Appointment MRI, [facility] - [address], [address] [place] [address] Silvio Spear MD [address] [facility] [address] [place] [address] [email or web address] documented as of this encounter Visit Diagnoses Not on filedocumented in this encounter Care Teams Combat Systems Officer Relationship Specialty Start Date End Date Yamil Singh MD [address] [place] [address] [place] [address] PCP - General Internal Medicine 09/20/22 documented as of this encounter Additional Source Comments The information contained in this document represents components of the legal health record. It is not the complete legal health record.[facility]
== END 2025-02-08 10:38 | disposition home or self-care (01) ==
LOC: HO.LNP 10:37
PROVIDERS: Visit Provider Internal Medicine
DX: E78.00 Pure hypercholesterolemia, unspecified (principal)
CPT/HCPCS: 80061